=== PATIENT | female | born 1945 | race Caucasian/White ===

== ENCOUNTER → 2017-07-09 14:49 | Outpatient (CLI) | payer MEDICARE, OTHER, SELFPAY ==
[2017-07-09 16:45] LABS: Hematocrit 42.2 % (37-47); Mean Corp Hgb Conc 33.2 g/gl (32-36); Mean Corpuscular Hgb 31.2 pg (27.0-32.0); Mean Platelet Vol. 12.3 fl (6.2-12.0); Platelet Count 163 K/mm3 (150-450); RBC Distribution Width SD 46.5 fl (35.1-43.9); Red Blood Count 4.49 M/mm3 (4.2-5.4); Scan Indicated on CBC? Y/N NO; White Blood Count 5.4 K/mm3 (4.4-11.0)
[2017-07-09 16:53] LABS: Erythrocyte Sedimentation Rate 4 mm/hr (0-30)
[2017-07-09 17:01] LABS: ALB/GLOB Ratio 1.2 RATIO (0.9-2.4); AST(SGOT) 27 U/L (15-37); Alanine Aminotransfer ALT/SGPT 29 U/L (13-56); Albumin, Serum 3.7 g/dL (3.2-5.0); Alkaline Phosphatase 73 U/L (45-117); Anion Gap 8 (5-15); BUN 13 mg/dL (7-18); BUN/Creat Ratio 15.6 RATIO (10-20); CRP < 2.90 mg/L (0.0-3.0); Calcium,Total 8.8 mg/dL (8.5-10.1); Chloride 105 mmol/L (98-107); Creatinine, Serum 0.83 mg/dL (0.55-1.02); EST Glomerular Filtration Rate 72 mL/min (>60); Est Glom Filt Rate - Afr Amer 87 mL/min (>60); Glucose 105 mg/dL (74-106); Potassium 3.5 mmol/L (3.5-5.1); Protein, Total 6.7 g/dL (6.4-8.2); Sodium Level 142 mmol/L (136-145)
== END ==
PROVIDERS: Family Provider Family Medicine; PCP Family Medicine
DX: M05.79 Rheumatoid arthritis with rheumatoid factor of multiple sites without organ or systems involvement (principal); H16.223 Keratoconjunctivitis sicca, not specified as Sjogren's, bilateral; Z79.899 Other long term (current) drug therapy
CPT/HCPCS: 36415; 80053; 85027; 85652; 86140

== ENCOUNTER → 2017-07-30 10:50 | Outpatient (CLI) | payer MEDICARE, OTHER, SELFPAY ==
--- NOTE | 2017-07-30 10:50 | DT_ITS ---
This patient was seen during an EMR downtime July 28, 2017 - August 04, 2017. This patient may have a combination of paper and electronic documentation or all paper documentation. All documentation is viewable within the e-chart portion of [facility] for each patient visit.
[2017-08-03 15:56] LABS: Glucose 77 mg/dL (74-106)
== END ==
PROVIDERS: Family Provider Family Medicine; PCP Family Medicine; Visit Provider Family Medicine
DX: E78.5 Hyperlipidemia, unspecified (principal); Z91.09 Other allergy status, other than to drugs and biological substances
CPT/HCPCS: 36415; 82947; 86003; 86005

== ENCOUNTER → 2017-10-09 14:13 | Outpatient (CLI) | payer MEDICARE, OTHER, SELFPAY | PROVIDERS: Family Provider Family Medicine; PCP Family Medicine; Visit Provider Family Medicine | DX: Z78.0 Asymptomatic menopausal state (principal); Z12.31 Encounter for screening mammogram for malignant neoplasm of breast | CPT/HCPCS: 77063; 77067; 77080 ==

== ENCOUNTER → 2018-01-30 09:54 | Outpatient (CLI) | payer MEDICARE, OTHER, SELFPAY ==
[2018-01-30 09:59] LABS: Bacteria 0 SEEN /hpf (None Seen); Mucous, Urine 0 SEEN /hpf (<or=2+); Red Blood Cells-Urine 0 SEEN /hpf (0-5); White Blood Cells 0 SEEN /hpf (0-5)
[2018-01-30 12:22] LABS: Absolute Lymphocyte Count 1.84 X10^3/ul (0.83-4.51); Absolute Neutrophil Count 1.3 X10^3/uL (2.0-7.7); Basophil# 0.01 X10^3/uL; Basophil% 0.3 % (0-1); Eosinophil# 0.18 X10^3/uL; Eosinophils% 4.9 % (0-5); Hemoglobin 14.3 g/dl (12.0-15.0); Lymphocyte # 1.84 X10^3/ul (4.0); Lymphocyte % 50.4 % (19-41); Mean Corp Hgb Conc 32.5 g/gl (32-36); Mean Corpuscular Hgb 30.6 pg (27.0-32.0); Mean Corpuscular Volume 94.2 fL (81-99); Mean Platelet Vol. 12.3 fl (6.2-12.0); Monocyte# 0.28 X10^3/uL; Monocyte% 7.7 % (0-10); Neutrophil # 1.34 X10^3/uL (2.7-7.7); Neutrophil % 36.7 % (47-70); Platelet Count 149 K/mm3 (150-450); RBC Distribution Width SD 46.8 fl (35.1-43.9); Red Blood Count 4.67 M/mm3 (4.2-5.4); White Blood Count 3.7 K/mm3 (4.4-11.0)
[2018-01-30 12:26] LABS: POSITIVE COUNT NO; POSITIVE DIFFERENTIAL NO; POSITIVE MORPHOLOGY NO
[2018-01-30 12:29] LABS: Color, Urine Yellow (Yellow); Glucose, Dipstick Normal (Normal); Ketone-Dipstick Negative (Negative); Leukocyte Esterase-Dipstick Negative /ul (Negative); Nitrite-Dipstick Negative (Negative); Occult Blood-Urine Negative /ul (Negative); Protein-Dipstick Negative (Negative); Specific Gravity, Urine 1.005 (1.002-1.030); Urine Bilirubin Dipstick Negative (Negative); Urine Clarity Clear (Clear); Urine Urobilinogen Normal (Normal)
[2018-01-30 12:42] LABS: Squamous Epithelial Cells - UA 0-5 SEEN /hpf (5-10)
[2018-01-30 12:43] LABS: ALB/GLOB Ratio 1.2 RATIO (0.9-2.4); AST(SGOT) 30 U/L (15-37); Alanine Aminotransfer ALT/SGPT 29 U/L (13-56); Albumin, Serum 3.7 g/dL (3.2-5.0); Alkaline Phosphatase 51 U/L (45-117); Anion Gap 8 (5-15); BUN 13 mg/dL (7-18); BUN/Creat Ratio 13.2 RATIO (10-20); CRP, High Sensitivity Cardiac 0.16 mg/L; Calcium,Total 9.2 mg/dL (8.5-10.1); Chloride 106 mmol/L (98-107); Creatinine, Serum 0.99 mg/dL (0.55-1.02); EST Glomerular Filtration Rate 59 mL/min (>60); Est Glom Filt Rate - Afr Amer 71 mL/min (>60); Free T3 2.6 pg/mL (2.18-3.98); Globulin 3.2 g/dL (2.2-4.2); Glucose 87 mg/dL (74-106); Protein, Total 6.9 g/dL (6.4-8.2); Sodium Level 143 mmol/L (136-145); T4 Total, Thyroxin 9.5 ug/dL (4.8-13.9); Thyroid Stim Hormone (TSH) 2.84 uIU/mL (0.358-3.74)
== END ==
PROVIDERS: Family Provider Family Medicine; PCP Family Medicine; Visit Provider Family Medicine
DX: E03.9 Hypothyroidism, unspecified (principal); M06.9 Rheumatoid arthritis, unspecified; M05.79 Rheumatoid arthritis with rheumatoid factor of multiple sites without organ or systems involvement; Z79.899 Other long term (current) drug therapy
CPT/HCPCS: 36415; 80053; 81001; 84436; 84443; 84481; 85025; 86141

== ENCOUNTER → 2018-08-03 09:10 | Outpatient (CLI) | payer MEDICARE, OTHER, SELFPAY ==
[2018-08-03 10:15] LABS: Erythrocyte Sedimentation Rate 1 mm/hr (0-30)
[2018-08-03 10:22] LABS: Absolute Lymphocyte Count 2.36 X10^3/ul (0.83-4.51); Absolute Neutrophil Count 2.1 X10^3/uL (2.0-7.7); Basophil# 0.01 X10^3/uL; Basophil% 0.2 % (0-1); Eosinophil# 0.24 X10^3/uL; Eosinophils% 4.8 % (0-5); Hematocrit 45.5 % (37-47); Lymphocyte # 2.36 X10^3/ul (4.0); Lymphocyte % 46.9 % (19-41); Mean Corpuscular Hgb 30.1 pg (27.0-32.0); Mean Corpuscular Volume 91.2 fL (81-99); Mean Platelet Vol. 12.2 fl (6.2-12.0); Monocyte# 0.36 X10^3/uL; Monocyte% 7.2 % (0-10); Neutrophil # 2.06 X10^3/uL (2.7-7.7); Neutrophil % 40.9 % (47-70); Platelet Count 154 K/mm3 (150-450); RBC Distribution Width CV 13.3 % (11.6-14.6); RBC Distribution Width SD 43.3 fl (35.1-43.9); Red Blood Count 4.99 M/mm3 (4.2-5.4)
[2018-08-03 10:32] LABS: POSITIVE COUNT NO; POSITIVE DIFFERENTIAL NO; POSITIVE MORPHOLOGY NO
[2018-08-03 10:41] LABS: ALB/GLOB Ratio 1.1 RATIO (0.9-2.4); AST(SGOT) 30 U/L (15-37); Alanine Aminotransfer ALT/SGPT 30 U/L (13-56); Albumin, Serum 3.8 g/dL (3.2-5.0); Alkaline Phosphatase 57 U/L (45-117); Anion Gap 8 (5-15); BUN 18 mg/dL (7-18); BUN/Creat Ratio 19.7 RATIO (10-20); CRP < 2.90 mg/L (0.0-3.0); Calcium,Total 9.3 mg/dL (8.5-10.1); Chloride 104 mmol/L (98-107); Creatinine, Serum 0.91 mg/dL (0.55-1.02); EST Glomerular Filtration Rate 64 mL/min (>60); Est Glom Filt Rate - Afr Amer 78 mL/min (>60); Globulin 3.5 g/dL (2.2-4.2); Glucose 91 mg/dL (74-106); Potassium 4.1 mmol/L (3.5-5.1); Protein, Total 7.3 g/dL (6.4-8.2); Sodium Level 143 mmol/L (136-145); Thyroid Stim Hormone (TSH) 6.32 uIU/mL (0.358-3.74)
== END ==
PROVIDERS: Family Provider Family Medicine; PCP Family Medicine; Visit Provider Family Medicine
DX: M05.79 Rheumatoid arthritis with rheumatoid factor of multiple sites without organ or systems involvement (principal); H16.223 Keratoconjunctivitis sicca, not specified as Sjogren's, bilateral; M25.531 Pain in right wrist; E03.9 Hypothyroidism, unspecified
CPT/HCPCS: 36415; 80053; 84443; 85025; 85652; 86140

== ENCOUNTER → 2018-09-18 10:47 | Outpatient (CLI) | payer MEDICARE, OTHER, SELFPAY ==
--- NOTE | 2018-09-18 11:00 | RAD_ITS ---
STUDY: X-RAY - RIGHT FOOT CLINICAL: Female, 73 years old. Pain, decreased range of motion TECHNIQUE: 3 view(s) of the foot. COMPARISON: None. FINDINGS: Normal talus, and tarsal bones. Calcaneal spurs. Normal visualized subtalar, talonavicular, calcaneocuboid, tarsal and tarsometatarsal articulations. Normal metatarsi. There is degenerative arthrosis of the metatarsophalangeal joint of the hallux . Normal tibial and fibular sesamoid bones. Normal interphalangeal joint of the great toe. Normal phalanges of the great toe. Normal second through fifth metatarsophalangeal joints. Normal interphalangeal joints and phalanges of the lesser toes. The soft tissue structures are unremarkable. RAD/Foot min 3 Views IMPRESSION: Significant first MTP joint arthrosis with spur formation Calcaneal spurs No demonstrated fracture Electronically Signed: Tigre Hatfield MD at 11:25 EDT , Service support ,
== END ==
PROVIDERS: Family Provider Family Medicine; PCP Family Medicine; Referring Provider Family Medicine; Visit Provider Family Medicine
DX: M79.671 Pain in right foot (principal)
CPT/HCPCS: 73630

== ENCOUNTER → 2018-10-15 14:18 | Outpatient (CLI) | payer MEDICARE, OTHER, SELFPAY ==
[2018-10-15 16:14] LABS: Thyroid Stim Hormone (TSH) 0.99 uIU/mL (0.358-3.74)
== END ==
PROVIDERS: Family Provider Family Medicine; PCP Family Medicine; Referring Provider Family Medicine; Visit Provider Family Medicine
DX: E03.9 Hypothyroidism, unspecified (principal)
CPT/HCPCS: 36415; 84443

== ENCOUNTER → 2019-02-01 09:02 | Outpatient (CLI) | payer MEDICARE, OTHER, SELFPAY ==
[2019-02-01 10:09] LABS: Absolute Neutrophil Count 1.9 X10^3/uL (2.0-7.7); Basophil# 0.04 X10^3/uL; Basophil% 0.8 % (0-1); Eosinophil# 0.48 X10^3/uL; Eosinophils% 9.4 % (0-5); Hematocrit 45.2 % (37-47); Hemoglobin 14.6 g/dL (12.0-15.0); Lymphocyte % 45.2 % (19-41); Mean Corp Hgb Conc 32.3 g/dL (32-36); Mean Corpuscular Hgb 30.3 pg (27.0-32.0); Mean Corpuscular Volume 93.8 fL (81-99); Mean Platelet Vol. 12.1 fl (6.2-12.0); Monocyte# 0.37 X10^3/uL; Monocyte% 7.3 % (0-10); NRBC Flagged by Analyzer 0 % (0-5); Neutrophil # 1.89 X10^3/uL (2.7-7.7); Neutrophil % 37.1 % (47-70); Platelet Count 161 K/mm3 (150-450); RBC Distribution Width CV 14.2 % (11.6-14.6); RBC Distribution Width SD 48.4 fl (35.1-43.9); Red Blood Count 4.82 M/mm3 (4.2-5.4); White Blood Count 5.1 K/mm3 (4.4-11.0)
[2019-02-01 10:18] LABS: Erythrocyte Sedimentation Rate 2 mm/hr (0-30)
[2019-02-01 10:59] LABS: ALB/GLOB Ratio 1.1 RATIO (0.9-2.4); AST(SGOT) 30 U/L (15-37); Alanine Aminotransfer ALT/SGPT 29 U/L (13-56); Albumin, Serum 3.7 g/dL (3.2-5.0); Alkaline Phosphatase 53 U/L (45-117); Anion Gap 5 (5-15); BUN 18 mg/dL (7-18); BUN/Creat Ratio 21.4 RATIO (10-20); CRP < 2.90 mg/L (0.0-3.0); Calcium,Total 9.1 mg/dL (8.5-10.1); Chloride 106 mmol/L (98-107); Cholesterol 196 mg/dL (200); Creatinine, Serum 0.84 mg/dL (0.55-1.02); EST Glomerular Filtration Rate 71 mL/min (>60); Est Glom Filt Rate - Afr Amer 85 mL/min (>60); Free T3 2.6 pg/mL (2.18-3.98); Globulin 3.3 g/dL (2.2-4.2); Glucose 87 mg/dL (74-106); High Density Lipoprotein 94 mg/dL; Potassium 3.9 mmol/L (3.5-5.1); Sodium Level 141 mmol/L (136-145); T4 Total, Thyroxin 9.3 ug/dL (4.8-13.9); Thyroid Stim Hormone (TSH) 1.29 uIU/mL (0.358-3.74); Triglycerides 36 mg/dL; Very Low Density Lipoprotein 7 mg/dL (5-40)
== END ==
PROVIDERS: Family Provider Family Medicine; PCP Family Medicine; Visit Provider Family Medicine
DX: E03.9 Hypothyroidism, unspecified (principal); E78.5 Hyperlipidemia, unspecified; M05.79 Rheumatoid arthritis with rheumatoid factor of multiple sites without organ or systems involvement; H16.223 Keratoconjunctivitis sicca, not specified as Sjogren's, bilateral; M25.531 Pain in right wrist; M25.532 Pain in left wrist
CPT/HCPCS: 36415; 80053; 80061; 84436; 84443; 84481; 85025; 85652; 86140

== ENCOUNTER → 2019-08-04 | Outpatient (CLI) | payer MEDICARE, OTHER, SELFPAY ==
[2019-08-04 10:40] LABS: Absolute Lymphocyte Count 2.03 X10^3/uL (0.83-4.51); Absolute Neutrophil Count 1.9 X10^3/uL (2.0-7.7); Basophil# 0.03 X10^3/uL; Basophil% 0.6 % (0-1); Eosinophil# 0.27 X10^3/uL; Eosinophils% 5.8 % (0-5); Hematocrit 44.3 % (37-47); Hemoglobin 14.2 g/dL (12.0-15.0); Lymphocyte # 2.03 X10^3/ul (4.0); Lymphocyte % 43.8 % (19-41); Mean Corp Hgb Conc 32.1 g/dL (32-36); Mean Corpuscular Hgb 30.3 pg (27.0-32.0); Mean Corpuscular Volume 94.7 fL (81-99); Mean Platelet Vol. 12.1 fl (6.2-12.0); Monocyte% 8.6 % (0-10); NRBC Flagged by Analyzer 0 % (0-5); Platelet Count 174 K/mm3 (150-450); RBC Distribution Width CV 13.7 % (11.6-14.6); RBC Distribution Width SD 46.8 fl (35.1-43.9); Red Blood Count 4.68 M/mm3 (4.2-5.4); White Blood Count 4.6 K/mm3 (4.4-11.0)
[2019-08-04 10:49] LABS: T3 Total - Triiodothyronine 0.94 ng/mL (0.6-1.81)
[2019-08-04 10:58] LABS: Erythrocyte Sedimentation Rate 5 mm/hr (0-30)
[2019-08-04 11:03] LABS: ALB/GLOB Ratio 1.1 RATIO (0.9-2.4); AST(SGOT) 29 U/L (15-37); Alanine Aminotransfer ALT/SGPT 32 U/L (13-56); Albumin, Serum 3.7 g/dL (3.2-5.0); Alkaline Phosphatase 58 U/L (45-117); Anion Gap 7 (5-15); BUN 19 mg/dL (7-18); BUN/Creat Ratio 22.8 RATIO (10-20); CRP < 2.90 mg/L (0.0-3.0); CRP, High Sensitivity Cardiac < 0.16 mg/L; Calcium,Total 9.6 mg/dL (8.5-10.1); Chloride 103 mmol/L (98-107); Cholesterol 207 mg/dL (200); Creatinine, Serum 0.83 mg/dL (0.55-1.02); EST Glomerular Filtration Rate 71 mL/min (>60); Est Glom Filt Rate - Afr Amer 86 mL/min (>60); Globulin 3.4 g/dL (2.2-4.2); Glucose 91 mg/dL (74-106); High Density Lipoprotein 101 mg/dL; Potassium 3.9 mmol/L (3.5-5.1); Protein, Total 7.1 g/dL (6.4-8.2); Sodium Level 139 mmol/L (136-145); T4 Total, Thyroxin 8.2 ug/dL (4.8-13.9); Thyroid Stim Hormone (TSH) 1.24 uIU/mL (0.358-3.74); Triglycerides 36 mg/dL; Very Low Density Lipoprotein 7 mg/dL (5-40)
== END | disposition home or self-care (01) ==
LOC: MFPLAB 08:27
PROVIDERS: PCP Family Medicine; Visit Provider Family Medicine
DX: E03.9 Hypothyroidism, unspecified (principal); E78.5 Hyperlipidemia, unspecified; M06.09 Rheumatoid arthritis without rheumatoid factor, multiple sites
CPT/HCPCS: 36415; 80053; 80061; 84436; 84443; 84480; 85025; 85652; 86140; 86141

== ENCOUNTER → 2019-12-06 | Outpatient (CLI) | payer MEDICARE, OTHER, SELFPAY ==
[2019-12-06 13:21] LABS: Erythrocyte Sedimentation Rate 2 mm/hr (0-30)
[2019-12-06 13:24] LABS: Hematocrit 45.1 % (37-47); Hemoglobin 14.3 g/dL (12.0-15.0); Mean Corp Hgb Conc 31.7 g/dL (32-36); Mean Corpuscular Hgb 30.2 pg (27.0-32.0); Mean Corpuscular Volume 95.1 fL (81-99); Mean Platelet Vol. 12.7 fl (6.2-12.0); Platelet Count 161 K/mm3 (150-450); RBC Distribution Width CV 13.1 % (11.6-14.6); RBC Distribution Width SD 46.1 fl (35.1-43.9); Red Blood Count 4.74 M/mm3 (4.2-5.4); White Blood Count 4.9 K/mm3 (4.4-11.0)
[2019-12-06 13:32] LABS: AST(SGOT) 31 U/L (15-37); Alanine Aminotransfer ALT/SGPT 33 U/L (13-56); Albumin, Serum 3.5 g/dL (3.2-5.0); Alkaline Phosphatase 72 U/L (45-117); Anion Gap 4 (5-15); BUN 19 mg/dL (7-18); BUN/Creat Ratio 24.2 RATIO (10-20); CRP < 2.90 mg/L (0.0-3.0); Calcium,Total 9.2 mg/dL (8.5-10.1); Chloride 104 mmol/L (98-107); Creatinine, Serum 0.78 mg/dL (0.55-1.02); EST Glomerular Filtration Rate 76 mL/min (>60); Est Glom Filt Rate - Afr Amer 93 mL/min (>60); Globulin 3.5 g/dL (2.2-4.2); Glucose 78 mg/dL (74-106); Potassium 3.7 mmol/L (3.5-5.1); Sodium Level 140 mmol/L (136-145)
== END | disposition home or self-care (01) ==
LOC: MTLAB 10:02
PROVIDERS: PCP Family Medicine
DX: M06.9 Rheumatoid arthritis, unspecified (principal)
CPT/HCPCS: 36415; 80053; 85027; 85652; 86140

== ENCOUNTER → 2020-02-02 08:53 | Outpatient (CLI) | payer MEDICARE, OTHER, SELFPAY ==
[2020-02-02 10:07] LABS: Absolute Lymphocyte Count 2.35 X10^3/uL (0.83-4.51); Absolute Neutrophil Count 1.9 X10^3/uL (2.0-7.7); Basophil# 0.03 X10^3/uL; Basophil% 0.6 % (0-1); Eosinophil# 0.28 X10^3/uL; Eosinophils% 5.7 % (0-5); Hematocrit 45.2 % (37-47); Hemoglobin 14.4 g/dL (12.0-15.0); Lymphocyte # 2.35 X10^3/ul (4.0); Mean Corp Hgb Conc 31.9 g/dL (32-36); Mean Corpuscular Hgb 29.4 pg (27.0-32.0); Mean Corpuscular Volume 92.2 fL (81-99); Mean Platelet Vol. 12.2 fl (6.2-12.0); Monocyte# 0.35 X10^3/uL; Monocyte% 7.1 % (0-10); NRBC Flagged by Analyzer 0 % (0-5); Neutrophil # 1.88 X10^3/uL (2.7-7.7); Neutrophil % 38.4 % (47-70); Platelet Count 164 K/mm3 (150-450); RBC Distribution Width CV 13.2 % (11.6-14.6); RBC Distribution Width SD 44.7 fl (35.1-43.9); White Blood Count 4.9 K/mm3 (4.4-11.0)
[2020-02-02 10:16] LABS: ALB/GLOB Ratio 1.1 RATIO (0.9-2.4); AST(SGOT) 25 U/L (15-37); Alanine Aminotransfer ALT/SGPT 29 U/L (13-56); Albumin, Serum 3.6 g/dL (3.2-5.0); Alkaline Phosphatase 60 U/L (45-117); Anion Gap 2 (5-15); BUN 14 mg/dL (7-18); BUN/Creat Ratio 17.3 RATIO (10-20); CRP < 2.90 mg/L (0.0-3.0); Calcium,Total 9.2 mg/dL (8.5-10.1); Chloride 106 mmol/L (98-107); Creatinine, Serum 0.81 mg/dL (0.55-1.02); EST Glomerular Filtration Rate 73 mL/min (>60); Est Glom Filt Rate - Afr Amer 89 mL/min (>60); Globulin 3.3 g/dL (2.2-4.2); Glucose 92 mg/dL (74-106); Potassium 3.9 mmol/L (3.5-5.1); Protein, Total 6.9 g/dL (6.4-8.2); Sodium Level 139 mmol/L (136-145)
[2020-02-02 10:30] LABS: Cholesterol 184 mg/dL (200); Free T3 2.2 pg/mL (2.18-3.98); High Density Lipoprotein 91 mg/dL; T4 Total, Thyroxin 10.3 ug/dL (4.8-13.9); Triglycerides 59 mg/dL; Very Low Density Lipoprotein 12 mg/dL (5-40)
[2020-02-02 10:58] LABS: Erythrocyte Sedimentation Rate 5 mm/hr (0-30)
== END ==
PROVIDERS: PCP Family Medicine; Referring Provider Family Medicine; Visit Provider Family Medicine
DX: E03.9 Hypothyroidism, unspecified (principal); E78.5 Hyperlipidemia, unspecified; M06.9 Rheumatoid arthritis, unspecified
CPT/HCPCS: 36415; 80053; 80061; 84436; 84443; 84481; 85025; 85652; 86140

== ENCOUNTER → 2020-05-12 11:20 | Outpatient (CLI) | payer MEDICARE, OTHER, SELFPAY ==
[2020-05-12 12:30] LABS: Hematocrit 46.2 % (37-47); Hemoglobin 14.7 g/dL (12.0-15.0); Mean Corp Hgb Conc 31.8 g/dL (32-36); Mean Corpuscular Hgb 29.7 pg (27.0-32.0); Mean Corpuscular Volume 93.3 fL (81-99); Mean Platelet Vol. 11.7 fl (6.2-12.0); Platelet Count 180 K/mm3 (150-450); RBC Distribution Width CV 13.1 % (11.6-14.6); RBC Distribution Width SD 44.6 fl (35.1-43.9); Red Blood Count 4.95 M/mm3 (4.2-5.4); White Blood Count 7.3 K/mm3 (4.4-11.0)
[2020-05-12 12:36] LABS: Erythrocyte Sedimentation Rate 6 mm/hr (0-30)
[2020-05-12 12:58] LABS: AST(SGOT) 28 U/L (15-37); Alanine Aminotransfer ALT/SGPT 29 U/L (13-56); Albumin, Serum 3.6 g/dL (3.2-5.0); Alkaline Phosphatase 70 U/L (45-117); Anion Gap 4 (5-15); BUN 19 mg/dL (7-18); BUN/Creat Ratio 22.7 RATIO (10-20); CRP < 2.90 mg/L (0.0-3.0); Calcium,Total 8.9 mg/dL (8.5-10.1); Chloride 104 mmol/L (98-107); Creatinine, Serum 0.84 mg/dL (0.55-1.02); EST Glomerular Filtration Rate 71 mL/min (>60); Est Glom Filt Rate - Afr Amer 86 mL/min (>60); Globulin 3.6 g/dL (2.2-4.2); Glucose 78 mg/dL (74-106); Potassium 3.7 mmol/L (3.5-5.1); Protein, Total 7.2 g/dL (6.4-8.2); Sodium Level 138 mmol/L (136-145)
== END ==
PROVIDERS: PCP Family Medicine; Referring Provider Family Medicine
DX: M06.9 Rheumatoid arthritis, unspecified (principal)
CPT/HCPCS: 36415; 80053; 85027; 85652; 86140

== ENCOUNTER → 2020-08-02 08:54 | Outpatient (CLI) | payer MEDICARE, OTHER, SELFPAY ==
[2020-08-02 10:03] LABS: Erythrocyte Sedimentation Rate 2 mm/hr (0-30)
[2020-08-02 10:06] LABS: Hematocrit 44.5 % (37-47); Hemoglobin 14.8 g/dL (12.0-15.0); Mean Corp Hgb Conc 33.3 g/dL (32-36); Mean Corpuscular Hgb 30.6 pg (27.0-32.0); Mean Corpuscular Volume 91.9 fL (81-99); Mean Platelet Vol. 12.1 fl (6.2-12.0); Platelet Count 172 K/mm3 (150-450); RBC Distribution Width CV 13.1 % (11.6-14.6); RBC Distribution Width SD 44.6 fl (35.1-43.9); Red Blood Count 4.84 M/mm3 (4.2-5.4); White Blood Count 4.5 K/mm3 (4.4-11.0)
[2020-08-02 10:49] LABS: ALB/GLOB Ratio 1.1 RATIO (0.9-2.4); AST(SGOT) 32 U/L (15-37); Alanine Aminotransfer ALT/SGPT 29 U/L (13-56); Albumin, Serum 3.6 g/dL (3.2-5.0); Alkaline Phosphatase 58 U/L (45-117); Anion Gap 7 (5-15); BUN 14 mg/dL (7-18); BUN/Creat Ratio 17.1 RATIO (10-20); CRP < 2.90 mg/L (0.0-3.0); Calcium,Total 9.5 mg/dL (8.5-10.1); Chloride 105 mmol/L (98-107); Cholesterol 165 mg/dL (200); Creatinine, Serum 0.82 mg/dL (0.55-1.02); EST Glomerular Filtration Rate 73 mL/min (>60); Est Glom Filt Rate - Afr Amer 88 mL/min (>60); Free T3 2.7 pg/mL (2.18-3.98); Globulin 3.4 g/dL (2.2-4.2); Glucose 88 mg/dL (74-106); High Density Lipoprotein 77 mg/dL; Potassium 3.9 mmol/L (3.5-5.1); Sodium Level 141 mmol/L (136-145); T4 Free Direct 1.19 ng/dL (0.76-1.46); Thyroid Stim Hormone (TSH) 0.17 uIU/mL (0.358-3.74); Triglycerides 60 mg/dL; Very Low Density Lipoprotein 12 mg/dL (5-40)
== END ==
PROVIDERS: PCP Family Medicine; Referring Provider Family Medicine; Visit Provider Family Medicine
DX: E03.9 Hypothyroidism, unspecified (principal); E78.5 Hyperlipidemia, unspecified; M06.9 Rheumatoid arthritis, unspecified
CPT/HCPCS: 36415; 80053; 80061; 84439; 84443; 84481; 85027; 85652; 86140

== ENCOUNTER 2020-10-07 08:10 | Emergency (ER) | payer MEDICARE, OTHER, SELFPAY ==
[2020-10-07 08:12] VITALS: BP 145/81; PULSE 86; RESP 14; TEMP 35.3; O2SAT 96; BMI 28.3
--- NOTE | 2020-10-07 08:39 | RAD_ITS ---
STUDY: X-RAY - RIGHT SHOULDER REASON FOR EXAM: Female, 75 years old. FOOSH TECHNIQUE: 2 view(s) of the shoulder. COMPARISON: None. FINDINGS: Normal glenohumeral articulation. Normal acromioclavicular joint. Normal acromion. Fracture the humeral neck which may be acute or chronic. The soft tissue structures are unremarkable. Normal visualized pulmonary apex. RAD/Shoulder min 2 Views IMPRESSION: Nondisplaced humeral neck fracture which may be acute or chronic. Electronically Signed: Festus De Santiago MD at 10:09 EDT Tel , Service support ,
--- NOTE | 2020-10-07 08:44 | EX.ED.UPPERE ---
HPI History of Present Illness Chief Complaint: Upper Extremity Injury Informant: patient Narrative Narrative: Patient is a 75-year-old female who presents to the emergency department for fall causing right shoulder and elbow pain. She states that she was out walking with her son whenever she tripped over a bump in the asphalt. She put her right arm out to catch herself and this caused her injury. She denies hitting her head or losing consciousness. No neck or back pain. No chest pain or shortness of breath. No abdominal pain or nausea/vomiting. Her symptoms are exacerbated by moving her right arm. No weakness or loss of sensation going down the hand. She is not on any blood thinning medications. She has not taken anything for her symptoms. She does have right wrist pain but states that this is chronic for her. It is no worse than normal. Patient is left-handed at baseline. [facility] Medical History (Updated 10/07/20 @ 10:[address] Chaparro Blair DO) High cholesterol Rheumatoid arthritis Home Medications atorvastatin 10 mg PO DAILY 10/07/20 [History Last Taken Unknown] etanercept [Enbrel] 50 mg SUBCUT 10/07/20 [History Last Taken Unknown] hydrocodone-acetaminophen 1 tab PO Q8H PRN 4 Days #10 tab 10/07/20 [Rx Last Taken Unknown] levothyroxine [Synthroid] 75 mcg PO DAILY 10/07/20 [History Last Taken Unknown] Allergy/AdvReac Type Severity Reaction Status Date / Time latex Allergy Itching Verified 10/07/20 08:11 Social History Smoking Status: Never smoker ROS ROS ED Constitutional Constitutional ED: Denies chills or fever(s) Eyes Eyes: Denies change in vision ENT ENT ED: Denies epistaxis Cardiovascular Cardiovascular: Denies chest pain Respiratory/Chest Respiratory/Chest: Denies cough or dyspnea Gastrointestinal Gastrointestinal: Denies abdominal pain, nausea or vomiting Musculoskeletal Musculoskeletal: Reports other Details: Right shoulder and elbow pain ; Denies back pain or neck pain Integumentary Denies abscess or rash Neurologic Neurologic: Denies dizziness, headache(s) or weakness EXAM Physical Exam Const Vital Signs: 10/07/20 08:12 Temperature 95.6 F L Temperature Source Temporal Pulse Rate 86 Respiratory Rate 14 Blood Pressure 145/81 H Blood Pressure Mean 102 Pulse Ox 96 Oxygen Delivery Method Room Air Positive well nourished and well developed General Appearance ED: well developed and NAD HEENT Reports normocephalic and head/scalp atraumatic Eyes PERRL and EOMs intact bilaterally Neck supple General: Negative for tenderness Resp normal respiratory effort and clear to auscultation bilaterally Auscultation: Negative for rales, rhonchi or wheezes Cardio regular rate, regular rhythm and no murmurs GI GI Narrative: Abdomen is soft nondistended, nontender Back/Spine Cervical Spine: Negative for cervical spine tenderness Thoracic Spine / Upper Back: Negative for thoracic spinal tenderness Lumbar Spine / Lower Back: Negative for lumbar spinal tenderness Extremity normal to inspection Extremity Narrative: No significant tenderness with palpation of the right shoulder or elbow. 2+ radial pulse. 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 Active range of motion is limited due to pain at the shoulder. No skin tenting over clavicle. General Extremety ED: Negative for edema or tenderness General Extremity: Negative for edema Neuro no sensory deficits noted Sensorium / Orientation: alert Psych mental status grossly normal Skin no rashes or lesions noted MDM MDM MDM Narrative Medical decision making narrative: Patient presents to the emergency department for mechanical fall causing right shoulder and elbow pain. Patient given a dose of Tylenol for symptomatic treatment. She is not anything stronger at this point. Will check x-ray of the elbow and shoulder. X-ray of the shoulder did show a nondisplaced fracture of the humerus neck. The elbow did not reveal any acute traumatic findings. Patient placed in a sling. They did request some stronger medication other than Tylenol. I did write a prescription for [place]. She understands that this can make her sleepy and at risk for fall. She is given referral for orthopedic surgery. Return precautions reviewed. She otherwise has remained neurovascular intact. Discharge Plan Triage Chief Complaint: Upper Extremity Injury ED Provider: Chaparro Blair Dx/Rx/DC Orders Clinical Impression: Fracture of proximal humerus Instructions: Understanding a Humerus Fracture Prescriptions: New hydrocodone-acetaminophen 5-325 mg tablet 1 tab PO Q8H PRN (Reason: pain) 4 Days Qty: 10 RF: 0 No Action atorvastatin 10 mg tablet 10 mg PO DAILY RF: 0 levothyroxine [Synthroid] 75 mcg tablet 75 mcg PO DAILY RF: 0 Enbrel 50 mg/mL (1 mL) syringe 50 mg SUBCUT RF: 0 Primary Care Provider: Elmo Cooney: Yohannes Cadet DO [STAFF PHYSICIAN] - 2 Days Elmo Cooney MD [Primary Care Provider] - Disposition Disposition: Home, Self Care Discharge Date/Time: 10/07/20 11:30
[2020-10-07] MEDS: Acetaminophen 325 MG Tablet 650 MG PO (08:57)
--- NOTE | 2020-10-07 09:20 | RAD_ITS ---
STUDY: X-RAY - RIGHT ELBOW REASON FOR EXAM: Female, 75 years old. FOOSH TECHNIQUE: 4 view(s) of the elbow. COMPARISON: None. FINDINGS: Normal visualized humerus, radius and ulna. Normal radiocapitellar and ulnotrochlear articulations. The soft tissue structures are unremarkable. There is no demonstrated fracture. RAD/Elbow 2 Views IMPRESSION: Normal x-ray examination of the right elbow. Electronically Signed: Tigre Cruz MD at 11:10 EDT , Service support ,
== END 2020-10-07 11:30 | disposition home or self-care (01) ==
PROVIDERS: Emergency Provider Emergency Medicine; PCP Family Medicine
DX: S42.294A Other nondisplaced fracture of upper end of right humerus, initial encounter for closed fracture (principal); M06.9 Rheumatoid arthritis, unspecified; E78.00 Pure hypercholesterolemia, unspecified; Z79.899 Other long term (current) drug therapy; W01.0XXA Fall on same level from slipping, tripping and stumbling without subsequent striking against object, initial encounter; Y93.01 Activity, walking, marching and hiking; Y92.89 Other specified places as the place of occurrence of the external cause; Y99.8 Other external cause status
CPT/HCPCS: 73030; 73070; 99283

== ENCOUNTER → 2021-02-07 08:53 | Outpatient (CLI) | payer MEDICARE, OTHER, SELFPAY ==
[2021-02-07 10:18] LABS: Erythrocyte Sedimentation Rate 3 mm/hr (0-30)
[2021-02-07 10:19] LABS: Hematocrit 46.3 % (37-47); Hemoglobin 14.7 g/dL (12.0-15.0); Mean Corp Hgb Conc 31.7 g/dL (32-36); Mean Corpuscular Hgb 29.6 pg (27.0-32.0); Mean Corpuscular Volume 93.2 fL (81-99); Mean Platelet Vol. 12.5 fl (6.2-12.0); Platelet Count 158 K/mm3 (150-450); RBC Distribution Width CV 13.2 % (11.6-14.6); Red Blood Count 4.97 M/mm3 (4.2-5.4)
[2021-02-07 10:44] LABS: ALB/GLOB Ratio 1.1 RATIO (0.9-2.4); AST(SGOT) 27 U/L (15-37); Alanine Aminotransfer ALT/SGPT 30 U/L (13-56); Albumin, Serum 3.6 g/dL (3.2-5.0); Alkaline Phosphatase 67 U/L (45-117); Anion Gap 4 (5-15); BUN 23 mg/dL (7-18); BUN/Creat Ratio 28.9 RATIO (10-20); CRP < 2.90 mg/L (0.0-3.0); Calcium,Total 9.3 mg/dL (8.5-10.1); Chloride 107 mmol/L (98-107); Cholesterol 189 mg/dL (200); EST Glomerular Filtration Rate 75 mL/min (>60); Est Glom Filt Rate - Afr Amer 91 mL/min (>60); Free T3 2.4 pg/mL (2.18-3.98); Globulin 3.3 g/dL (2.2-4.2); Glucose 99 mg/dL (74-106); High Density Lipoprotein 75 mg/dL; Protein, Total 6.9 g/dL (6.4-8.2); Sodium Level 140 mmol/L (136-145); T4 Free Direct 0.97 ng/dL (0.76-1.46); Thyroid Stim Hormone (TSH) 2.67 uIU/mL (0.358-3.74); Triglycerides 81 mg/dL; Very Low Density Lipoprotein 16 mg/dL (5-40)
[2021-02-07 10:47] LABS: Vitamin D,25 Hydroxy 64.8 ng/mL
== END ==
PROVIDERS: PCP Family Medicine; Referring Provider Family Medicine; Visit Provider Family Medicine
DX: E03.9 Hypothyroidism, unspecified (principal); E55.9 Vitamin D deficiency, unspecified; E78.5 Hyperlipidemia, unspecified; M06.9 Rheumatoid arthritis, unspecified
CPT/HCPCS: 36415; 80053; 80061; 82306; 84439; 84443; 84481; 85027; 85652; 86140

== ENCOUNTER → 2021-08-08 | Outpatient (CLI) | payer MEDICARE, OTHER, SELFPAY ==
[2021-08-08 10:05] LABS: Erythrocyte Sedimentation Rate 6 mm/hr (0-30)
[2021-08-08 10:08] LABS: Absolute Neutrophil Count 2.1 X10^3/uL (2.0-7.7); Basophil# 0.03 X10^3/uL; Basophil% 0.6 % (0-1); Eosinophil# 0.28 X10^3/uL; Eosinophils% 5.5 % (0-5); Hematocrit 45.7 % (37-47); Hemoglobin 15.2 g/dL (12.0-15.0); Lymphocyte % 43.2 % (19-41); Mean Corp Hgb Conc 33.3 g/dL (32-36); Mean Corpuscular Hgb 30.8 pg (27.0-32.0); Mean Corpuscular Volume 92.7 fL (81-99); Monocyte# 0.44 X10^3/uL; Monocyte% 8.6 % (0-10); NRBC Flagged by Analyzer 0 % (0-5); Neutrophil # 2.14 X10^3/uL (2.7-7.7); Neutrophil % 42.1 % (47-70); Platelet Count 164 K/mm3 (150-450); RBC Distribution Width CV 13.1 % (11.6-14.6); RBC Distribution Width SD 44.6 fl (35.1-43.9); Red Blood Count 4.93 M/mm3 (4.2-5.4); White Blood Count 5.1 K/mm3 (4.4-11.0)
[2021-08-08 10:50] LABS: ALB/GLOB Ratio 1.1 RATIO (0.9-2.4); AST(SGOT) 35 U/L (15-37); Alanine Aminotransfer ALT/SGPT 34 U/L (13-56); Albumin, Serum 3.9 g/dL (3.2-5.0); Alkaline Phosphatase 60 U/L (45-117); Anion Gap 6 (5-15); BUN 22 mg/dL (7-18); BUN/Creat Ratio 24.9 RATIO (10-20); CRP < 2.90 mg/L (0.0-3.0); Calcium,Total 9.7 mg/dL (8.5-10.1); Chloride 104 mmol/L (98-107); Cholesterol 185 mg/dL (200); Creatinine, Serum 0.88 mg/dL (0.55-1.02); EST Glomerular Filtration Rate 66 mL/min (>60); Est Glom Filt Rate - Afr Amer 80 mL/min (>60); Free T3 2.7 pg/mL (2.18-3.98); Globulin 3.5 g/dL (2.2-4.2); Glucose 93 mg/dL (74-106); High Density Lipoprotein 75 mg/dL; Protein, Total 7.4 g/dL (6.4-8.2); Sodium Level 140 mmol/L (136-145); T4 Free Direct 0.94 ng/dL (0.76-1.46); Thyroid Stim Hormone (TSH) 2.73 uIU/mL (0.358-3.74); Triglycerides 55 mg/dL; Very Low Density Lipoprotein 11 mg/dL (5-40)
== END | disposition home or self-care (01) ==
LOC: MFPLAB 08:50
PROVIDERS: PCP Family Medicine; Referring Provider Family Medicine; Visit Provider Family Medicine
DX: M06.9 Rheumatoid arthritis, unspecified (principal); E78.5 Hyperlipidemia, unspecified; E03.9 Hypothyroidism, unspecified
CPT/HCPCS: 36415; 80053; 80061; 84439; 84443; 84481; 85025; 85652; 86140

== ENCOUNTER → 2022-03-08 | Outpatient (CLI) | payer MEDICARE, OTHER, SELFPAY ==
[2022-03-08 12:28] LABS: Erythrocyte Sedimentation Rate 4 mm/hr (0-30)
[2022-03-08 12:31] LABS: Absolute Lymphocyte Count 2.48 X10^3/uL (0.83-4.51); Absolute Neutrophil Count 1.8 X10^3/uL (2.0-7.7); Basophil# 0.03 X10^3/uL; Basophil% 0.6 % (0-1); Eosinophil# 0.18 X10^3/uL; Eosinophils% 3.6 % (0-5); Hematocrit 46.7 % (37-47); Hemoglobin 15.1 g/dL (12.0-15.0); Lymphocyte # 2.48 X10^3/ul (0.83-4.51); Lymphocyte % 49.2 % (19-41); Mean Corp Hgb Conc 32.3 g/dL (32-36); Mean Corpuscular Volume 92.7 fL (81-99); Mean Platelet Vol. 12.3 fl (6.2-12.0); Monocyte# 0.51 X10^3/uL; Monocyte% 10.1 % (0-10); NRBC Flagged by Analyzer 0.4 % (0-5); Neutrophil # 1.83 X10^3/uL (2.7-7.7); Neutrophil % 36.3 % (47-70); Platelet Count 157 K/mm3 (150-450); RBC Distribution Width CV 12.9 % (11.6-14.6); RBC Distribution Width SD 43.8 fl (35.1-43.9); Red Blood Count 5.04 M/mm3 (4.2-5.4)
[2022-03-08 13:06] LABS: Vitamin D,25 Hydroxy 60.4 ng/mL
[2022-03-08 13:21] LABS: ALB/GLOB Ratio 1.5 RATIO (0.9-2.4); AST(SGOT) 30 U/L (15-37); Alanine Aminotransfer ALT/SGPT 30 U/L (13-56); Albumin, Serum 4.2 g/dL (3.2-5.0); Alkaline Phosphatase 58 U/L (45-117); Anion Gap 8 (5-15); BUN 15 mg/dL (7-18); BUN/Creat Ratio 15.6 RATIO (10-20); CRP < 2.90 mg/L (0.0-3.0); Calcium,Total 9.4 mg/dL (8.5-10.1); Chloride 104 mmol/L (98-107); Cholesterol 172 mg/dL (200); Creatinine, Serum 0.96 mg/dL (0.55-1.02); EST Glomerular Filtration Rate 60 mL/min (>60); Est Glom Filt Rate - Afr Amer 73 mL/min (>60); Free T3 3.1 pg/mL (2.18-3.98); Globulin 2.8 g/dL (2.2-4.2); Glucose 87 mg/dL (74-106); High Density Lipoprotein 71 mg/dL; Potassium 4.3 mmol/L (3.5-5.1); Sodium Level 140 mmol/L (136-145); T4 Free Direct 1.56 ng/dL (0.76-1.46); Thyroid Stim Hormone (TSH) 0.23 uIU/mL (0.358-3.74); Triglycerides 73 mg/dL; Very Low Density Lipoprotein 15 mg/dL (5-40)
== END | disposition home or self-care (01) ==
PROVIDERS: PCP Family Medicine; Referring Provider Family Medicine
DX: Z00.00 Encounter for general adult medical examination without abnormal findings (principal); M05.79 Rheumatoid arthritis with rheumatoid factor of multiple sites without organ or systems involvement; M35.00 Sjogren syndrome, unspecified; Z79.899 Other long term (current) drug therapy; E03.9 Hypothyroidism, unspecified; E55.9 Vitamin D deficiency, unspecified
CPT/HCPCS: 36415; 80053; 80061; 82306; 84439; 84443; 84481; 85025; 85652; 86140

== ENCOUNTER 2022-06-19 08:48 | Day surgery (SDC) | payer MEDICARE, OTHER, SELFPAY ==
[2022-06-19] VITALS (7 sets, daily range): BP systolic 99–125; BP diastolic 57–68; PULSE 73–82; RESP 16; TEMP 36.2–36.4; O2SAT 93–98; BMI 26.4
[2022-06-19] MEDS: Lactated Ringers 1,000 ML 15 ML IV (09:29)
--- NOTE | 2022-06-19 09:29 | HP.PCM_ITS ---
HPI - General General Date of Admission: 06/19/22 HPI Narrative SARI JORDAN, is a 76 F who presents for screening colonoscopy. Patient's last colonoscopy was about 10 years ago or more patient is unsure?normal per patient. Patient denies any family history of colon cancer. Patient's bowel movements every other day denies any blood. Patient denies any chronic abdominal pain/nausea/vomiting/reflux. [facility] Medical History (Updated 06/17/22 @ 09:34 by La Morrison) Alcohol use Arthritis Excessive bleeding High cholesterol History of GI bleed History of stress test Hypothyroid Non-smoker Post-menopausal Rheumatoid arthritis Seizures Thyroid disease Wears glasses Home Medications atorvastatin 10 mg tablet 10 mg PO DAILY 10/07/20 [History Last Taken Unknown] etanercept 50 mg/mL (1 mL) subcutaneous syringe (Enbrel) 50 mg subcut QWEEK 10/07/20 [History Last Taken Unknown] levothyroxine 75 mcg tablet (Synthroid) 75 mcg PO DAILY 10/07/20 [History Last Taken Unknown] calcium carbonate 600 mg calcium (1,500 mg) tablet (Calcium) 600 mg PO DAILY 05/27/22 [History Last Taken Unknown] cholecalciferol (vitamin D3) 50 mcg (2,000 unit) capsule 50 mcg PO DAILY 05/27/22 [History Last Taken Unknown] coenzyme Q10 75 mg capsule (Ultra CoQ10) 200 mg PO DAILY 05/27/22 [History Last Taken Unknown] magnesium citrate 100 mg tablet 400 mg PO DAILY 05/27/22 [History Last Taken U nknown] multivitamin 1 tab PO DAILY 05/27/22 [History Last Taken Unknown] omega 5-ugp-luk-fish oil 300 mg-1,000 mg capsule (Fish Oil) 1 cap PO DAILY 05/27/22 [History Last Taken Unknown] Allergy/AdvReac Type Severity Reaction Status Date / Time latex Allergy Rash Verified 06/19/22 09:24 Family History (Updated 05/27/22 @ 08:40 by Karen Redman) Mother Hypertension Heart disease CVA (cerebral vascular accident) Father Asthma Heart disease Surgical History History of colonoscopy Hx of appendectomy Hx of tonsillectomy Hx of tubal ligation Social History (Updated 05/27/22 @ 08:41 by Karen Redman) household members: spouse Smoking Status: Never smoker alcohol intake: never Past Medical/Surgical History Planned Operation Planned Operative Procedure/s: COLONOSCOPY Previous Hospitalizations/Surgeries HX Hospitalizations: No Any Problems With Anesthesia: No You/Your Family Experience Fever (Hyperthermia) With Anes: No Cholinesterase deficiency: No Cardiovascular Hx Hypertension: No Respiratory Hx Sleep Apnea: No Hx Respiratory Tract Infection/Cold (presently): No Do You Snore Loudly (louder than talking or can be heard): No Do You Often Feel Tired/ Fatigued/ Sleepy Dring Daytime?: No Has Anyone Observed You Stop Breathing During Sleep?: No Result (for STOP score): Negative Smoking Status: Never smoker Neurological Does patient have nerve stimulator: No Miscellaneous Recent Exposure to Contagious Disease: No Allergies latex Allergy (Verified 06/19/22 09:24) Rash wheezing Discharge Is Pt Admitted From a Group Home, or a Detention: No After D/C, Where Do you Plan to Go: Return Home Vital Signs Vital Signs Vital Signs: 06/19/22 09:06 06/19/22 09:06 Temperature 97.6 F L Temperature Source Temporal Pulse Rate 73 Respiratory Rate 16 Respiratory Pattern Normal Blood Pressure 125/66 H Blood Pressure Mean 85 Blood Pressure Source Monitor Blood Pressure Position Semi-Fowlers Blood Pressure Location Left Arm Pulse Ox 98 Oxygen Delivery Method Room Air Weight Weight: 140 lb Body Mass Index (BMI) 26.4 Physical Exam Const alert, oriented x3 and no apparent distress HEENT normocephalic and head/scalp atraumatic Resp normal respiratory effort Cardio regular rate GI soft to palpation and non-tender; Negative for non-distended Palpation: Negative for guarding Extremity no clubbing, cyanosis or edema Neuro CN's II-XII intact bilaterally Psych mental status grossly normal Assessment & Plan Assessment/Plan (1) Encounter for screening for malignant neoplasm of colon: Surgery Risks - Colonoscopy Risks Include but are not Limited To: Risks include but are not limited to: Bleeding, perforation requiring further surgery, inability to complete colonoscopy requiring barium enema.
--- NOTE | 2022-06-19 10:00 | COLBX_PTH ---
PATIENT: SARI JORDAN LOC: EN U#:[id number] AGE/SX: 76/F ROOM: RE06/19/[address]: Dr. Mariely Tapia MD : 1945 BED: DIS: 06/19/2022 SPEC #: [id number] RECD: 06/19/22 10:50 STATUS: YECENIA REQ #: [id number] RENATA: 06/19/22 10:[address]: Mariely Tapia DEPT: SURGICAL PATHOLOGY RECD BY: Faye Kline ENTERED: 06/19/22 12:23 SP TYPE: COLON BX OTHR DR: Dr. Elmo Cooney MD Tissues: Rectum, NOS Procedures: Surgery Specimen Level IV HEADER OPERATION: Colonoscopy ? open access (MAC) and polypectomy PRE-OP DIAGNOSIS: Screening TISSUE SUBMITTED: Rectal polyp MICROSCOPIC DIAGNOSIS Rectal polyp, polypectomy: Fragments of hyperplastic polyp. SJ:rajni 06/20/2022 MICROSCOPIC DESCRIPTION Slides are reviewed. GROSS DESCRIPTION Received in fixative is one container labeled with the patient's name and designated rectal polyp. The specimen consists of two irregular fragments of light shane soft tissue that in aggregate measure 1.0 x 0.3 x 0.1 cm. The specimen is totally submitted in one cassette. / AM:rajni 06/19/2022 TC:1 CPT: 42747
--- NOTE | 2022-06-19 10:27 | OP.COLON_ITS ---
Patient Name: Sparkle Pina Procedure Date: 06/19/2022 9:41 AM Date of : 1945 Age: 76 Procedure: Colonoscopy Indications: Screening for colorectal malignant neoplasm Providers: Mariely Tapia MD Medicines: Monitored Anesthesia Care Patient Profile: This is a 76 year old female. Last Colonoscopy: more than 10 years ago. Complications: No immediate complications. Procedure: Pre-Anesthesia Assessment: - Prior to the procedure, a History and Physical was performed, and patient medications and allergies were reviewed. The patient's tolerance of previous anesthesia was also reviewed. The risks and benefits of the procedure and the sedation options and risks were discussed with the patient. All questions were answered, and informed consent was obtained. Prior Anticoagulants: The patient has taken no previous anticoagulant or antiplatelet agents. ASA Grade Assessment: Per anesthesia. After reviewing the risks and benefits, the patient was deemed in satisfactory condition to undergo the procedure. After I obtained informed consent, the scope was passed under direct vision. Throughout the procedure, the patient's blood pressure, pulse, and oxygen saturations were monitored continuously. The colonoscope was introduced through the anus and advanced to the cecum, identified by the appendiceal orifice, ileocecal valve and palpation. The colonoscopy was performed without difficulty. The patient tolerated the procedure well. The quality of the bowel preparation was good. Scope In: 9:58:55 AM Scope Withdrawal Time 0 hours 11 minutes 10 seconds Scope Out: 10:18:26 AM Total Procedure Duration Time 0 hours 19 minutes 31 seconds Findings: Hemorrhoids were found on perianal exam. Non-bleeding external hemorrhoids were found. The hemorrhoids were small. A less than 5 mm polyp was found in the rectum. The polyp was sessile. The polyp was removed with a cold biopsy forceps. Resection and retrieval were complete. Impression: - Hemorrhoids found on perianal exam. - Non-bleeding external hemorrhoids. - One less than 5 mm polyp in the rectum, removed with a cold biopsy forceps. Resected and retrieved. Recommendation: - Await pathology results. - Repeat colonoscopy based on path and overall health at time of repeat if it is needed per path. - Continue present medications. Procedure Code(s): --- Professional --- 83973, PT, Colonoscopy, flexible; with biopsy, single or multiple Diagnosis Code(s): --- Professional --- Z12.11, Encounter for screening for malignant neoplasm of colon K64.4, Residual hemorrhoidal skin tags K62.1, Rectal polyp CPT copyright 2017 [employer]. All rights reserved. The codes documented in this report are preliminary and upon busperson review may be revised to meet current compliance requirements. MD Mariely Euceda MD 06/19/2022 10:26:23 AM This report has been signed electronically. Number of Addenda: 0 Note Initiated On: 06/19/2022 9:41 AM
--- NOTE | 2022-06-19 10:27 | OP.CCLET_ITS ---
06/19/2022 Elmo Cooney MD [address] [id number] Re : Colonoscopy procedure for Sparkle Pina Dear Dr. Cooney This procedure was performed on Sunday, June 19, 2022. My impressions and recommendations are as follows: Impressions : - Hemorrhoids found on perianal exam. - Non-bleeding external hemorrhoids. - One less than 5 mm polyp in the rectum, removed with a cold biopsy forceps. Resected and retrieved. Recommendations : - Await pathology results. - Repeat colonoscopy based on path and overall health at time of repeat if it is needed per path. - Continue present medications. My findings are described in the full procedure note, which is enclosed. If I can be of further assistance, please feel free to contact me at Doctor phone number(s): , Work: . Sincerely, MD Mariely Euceda MD 06/19/2022 10:26:23 AM This report has been signed electronically.
== END 2022-06-19 11:15 | disposition home or self-care (01) ==
LOC: EN 08:49 → AC 08:50
PROVIDERS: PCP Family Medicine; Referring Provider Family Medicine; Visit Provider Surgery
PROC: 0DJD8ZZ Inspection of Lower Intestinal Tract, Via Natural or Artificial Opening Endoscopic (ICD-10-PCS; CPT 45378; principal; 2022-06-19 09:55)
DX: Z12.11 Encounter for screening for malignant neoplasm of colon (principal); K64.4 Residual hemorrhoidal skin tags; E78.00 Pure hypercholesterolemia, unspecified; K62.1 Rectal polyp; E03.9 Hypothyroidism, unspecified; Z79.890 Hormone replacement therapy; Z79.899 Other long term (current) drug therapy
CPT/HCPCS: 45380; 88305; J7120; J2405

== ENCOUNTER → 2022-07-02 | Outpatient (CLI) | payer MEDICARE, OTHER, SELFPAY ==
--- NOTE | 2022-07-02 15:07 | BI_ITS ---
MAMMOGRAPHY - BILATERAL SCREENING REASON FOR EXAM: Female, 76 years old. Routine annual screening examination. PERTINENT HISTORY: Non-contributory. TECHNIQUE: Digital bilateral breast altagracia (3D mammographic acquisition) in the CC and MLO projections. 2-D mediolateral oblique (MLO) and craniocaudad (CC) views of both breasts were obtained. CAD: Full Field Digital Mammography with Computer Added Detection was performed. COMPARISON: Comparison is made with prior study October 09, 2017 and August 07, 2015. FINDINGS: Breast Composition: There are scattered areas of fibroglandular density. There are no dominant masses or suspicious calcifications. Stable small benign-appearing bilateral axillary lymph nodes. No other significant abnormalities are identified. There has been no significant change since the prior study. BI/SCRN MAMM (CAD)W/ALTAGRACIA BILAT IMPRESSION: Stable bilateral screening mammogram. Yearly follow-up mammogram recommended. (A) ASSESSMENT CATEGORY: BIRADS Category 2: Benign. A letter regarding these results will be sent to the patient by the facility within 30 days. Approximately 10% of breast cancers are not detected by mammography. A normal mammogram should not delay biopsy of a clinically suspicious abnormality. [id number] Electronically Signed: Joaquin Colon MD at 9:01 EDT ,
--- NOTE | 2022-07-02 15:21 | BD_ITS ---
STUDY: DUAL ENERGY X-RAY ABSORPTIOMETRY / DXA REASON FOR EXAM: Female, 76 years old. Z780 TECHNIQUE: Bone Mineral Density (BMD) measurements of lumbar spine and bilateral hips were obtained. COMPARISON: Comparison is made with prior study dated October 09, 2017. FINDINGS: Lumbar Spine (L1-L4): g/cm2 (1.187) / T-score (0.8) / Z-score (3.4) Findings are suggestive of normal bone density with a low fracture risk. Left Femur Total: g/cm2 (0.890) / T-score (-0.4) / Z-score (1.4) Left Femoral Neck: g/cm2 (0.719) / T-score (-1.2) / Z-score (1.0) Right Femur Total: g/cm2 (0.923) / T-score (-0.2) / Z-score (1.7) Right Femoral Neck: g/cm2 (0.784) / T-score (-0.6) / Z-score (1.5) The T-Scores on the most recent prior examination were: Lumbar Spine (L1-L4): There has been improvement of bone density since the previous examination. Left Femur Total: which represents a worsening of 4%. Right Femur Total: which represents an improvement of 2.3%. BD/Dexa Bone Density Study IMPRESSION: The patient is considered osteopenic as outlined below according to World Aren Organization (WHO) criteria with a low fracture risk. There has been improvement of bone density since the previous examination. Reference Information: The T-score is the number of standard deviations above or below the standard which is normal for young adults at their peak bone mineral density. The World Health Organization (WHO) interprets the T-scores as follows: Above -1 Normal bone density Between -1 and -2.5 Osteopenia Equal to / or below -2.5 Osteoporosis As a practical clinical guideline, osteopenia may be graded as follows: Mild -1 through -1.5 Moderate -1.6 through -2.0 Severe -2.1 through -2.4 The Z-score is the number of standard deviations above or below age-matched controls. A Z-score of less than -1.5 would be considered abnormal. References: 1. NIH Osteoporosis and Related Bone Diseases www osteo.org 2. International Society for Clinical Densitometry www iscd.org 3. National Osteoporosis Foundation www nof.org Electronically Signed: Joaquin Colon MD at 12:34 EDT ,
== END | disposition home or self-care (01) ==
LOC: OPBD 15:05
PROVIDERS: PCP Family Medicine; Referring Provider Family Medicine; Visit Provider Family Medicine
DX: Z12.31 Encounter for screening mammogram for malignant neoplasm of breast (principal); Z78.0 Asymptomatic menopausal state
CPT/HCPCS: 77063; 77067; 77080

== ENCOUNTER → 2022-11-06 | Outpatient (CLI) | payer MEDICARE, OTHER, SELFPAY ==
[2022-11-06 13:01] LABS: Erythrocyte Sedimentation Rate 9 mm/hr (0-30)
[2022-11-06 13:04] LABS: Absolute Lymphocyte Count 2.83 X10^3/uL (0.83-4.51); Absolute Neutrophil Count 3.7 X10^3/uL (2.0-7.7); Basophil# 0.04 X10^3/uL; Basophil% 0.5 % (0-1); Eosinophil# 0.37 X10^3/uL; Eosinophils% 4.8 % (0-5); Hematocrit 45.1 % (37-47); Hemoglobin 14.3 g/dL (12.0-15.0); Lymphocyte # 2.83 X10^3/ul (0.83-4.51); Lymphocyte % 36.9 % (19-41); Mean Corp Hgb Conc 31.7 g/dL (32-36); Mean Corpuscular Hgb 29.4 pg (27.0-32.0); Mean Corpuscular Volume 92.8 fL (81-99); Mean Platelet Vol. 11.9 fl (6.2-12.0); Monocyte# 0.68 X10^3/uL; Monocyte% 8.9 % (0-10); NRBC Flagged by Analyzer 0 % (0-5); Neutrophil # 3.73 X10^3/uL (2.7-7.7); Neutrophil % 48.8 % (47-70); Platelet Count 194 K/mm3 (150-450); RBC Distribution Width CV 13.2 % (11.6-14.6); RBC Distribution Width SD 44.9 fl (35.1-43.9); Red Blood Count 4.86 M/mm3 (4.2-5.4); White Blood Count 7.7 K/mm3 (4.4-11.0)
[2022-11-06 13:08] LABS: ALB/GLOB Ratio 1.1 RATIO (0.9-2.4); AST(SGOT) 27 U/L (15-37); Alanine Aminotransfer ALT/SGPT 32 U/L (13-56); Albumin, Serum 3.7 g/dL (3.2-5.0); Alkaline Phosphatase 73 U/L (45-117); Anion Gap 2 (5-15); BUN 16 mg/dL (7-18); BUN/Creat Ratio 18.3 RATIO (10-20); CRP < 2.90 mg/L (0.0-3.0); Calcium,Total 9.2 mg/dL (8.5-10.1); Chloride 104 mmol/L (98-107); Creatinine, Serum 0.87 mg/dL (0.55-1.02); EST Glomerular Filtration Rate 67 mL/min (>60); Est Glom Filt Rate - Afr Amer 81 mL/min (>60); Globulin 3.3 g/dL (2.2-4.2); Glucose 88 mg/dL (74-106); Sodium Level 137 mmol/L (136-145)
== END | disposition home or self-care (01) ==
PROVIDERS: PCP Family Medicine
DX: M05.79 Rheumatoid arthritis with rheumatoid factor of multiple sites without organ or systems involvement (principal); M35.00 Sjogren syndrome, unspecified; Z79.899 Other long term (current) drug therapy
CPT/HCPCS: 36415; 80053; 85025; 85652; 86140

== ENCOUNTER → 2023-03-10 | Outpatient (CLI) | payer MEDICARE, OTHER, SELFPAY ==
--- OUTSIDE RECORDS SUMMARY | 2023-03-10 09:39 | XMS RPT_ITS | CCD ---
Author Name Unknown Address [address] [place] [address] Organization [facility] Care Team Providers Care [employer] Name Role Phone Pending Provider Unavailable Unavailable Ivet CORTES, Elmo Jones Primary Care Provider Elmo Guzman MD Primary Care Provider 1( [phone] Elmo Guzman MD Primary Care Provider ELMO GUZMAN Primary Care Unavailable KEMI RUFF Referring Unavailable KEMI RUFF Attending Unavailable ELMO GUZMAN Primary Care Unavailable PHILLIP PINA II [facility] Primary Care Unavailable Allergies Allergy Classification Reported Allergen(s) Allergy Type Date of Onset Reaction(s) Facility (10 sources) Codeine; Translations: [CODEINE] Drug Allergy 05-05-2002 [facility] (10 sources) Latex; Translations: [LATEX] Allergy to substance 05-05-2002 [facility] (10 sources) Pentazocine; Translations: [PENTAZOCINE] Drug Allergy 05-05-2002 [facility] (10 sources) Propoxyphene; Translations: [PROPOXYPHENE] Drug Allergy 05-05-2002 [facility] Medications Current Medications Medication Drug Class(es) Dates Sig (Normalized) Sig (Original) phenylephrine hydrochloride 25 mg/ml ophthalmic solution (1 source) alpha-1 Adrenergic Agonist Start: 09-19-2022 End: 09-20-2022 PHENYLephrine 2.5 % 1 Drop (AK-DILATE, ZEHRA-SYNEPHRINE) tropicamide 10 mg/ml ophthalmic solution (1 source) Anticholinergic Start: 09-19-2022 End: 09-20-2022 tropicamide 1 % 1 Drop (MYDRIACYL) Completed/Discontinued Medications Medication Drug Class(es) Dates Sig (Normalized) Sig (Original) atorvastatin 10 mg oral tablet (9 sources) HMG-CoA Reductase Inhibitor Start: 11-03-2006 take 1 tablet by mouth once daily atorvastatin 10 mg ORAL Tab Take 10 mg by mouth once daily. 0 11/03/2006 Active Problems Active Problems Problem Classification Problem Date Documented Date Episodic/Chronic Cataract (19 sources) Nuclear senile cataract; Translations: [Age-related nuclear cataract, unspecified eye] Onset: 5 09-08-2014 Chronic Disorders of lipid metabolism (9 sources) Hyperlipidemia; Translations: [Hyperlipidemia, unspecified] Onset: 1 07-26-2010 Chronic Fracture of upper limb (13 sources) Fracture of upper end of humerus; Translations: [Aftercare for healing traumatic fracture of upper arm] Episodic Inflammation; infection of eye (except that caused by tuberculosis or sexually transmitteddisease) (10 sources) Keratoconjunctivitis sicca; Translations: [Keratoconjunctivitis sicca, not specified as Sjogren's, unspecified eye] Onset: 5 09-08-2014 Chronic Other aftercare (1 source) Long-term current use of immunosuppressive drug; Translations: [Other intermediate teacher (current) drug therapy] 11-16-2022 Episodic Other connective tissue disease (13 sources) Muscle weakness of upper limb; Translations: [Muscle weakness (generalized)] Episodic Other eye disorders (10 sources) Bilateral vitreous floaters; Translations: [Other vitreous opacities, bilateral] Onset: 7 02-04-2017 Chronic Other non-traumatic joint disorders (13 sources) Decreased range of shoulder movement; Translations: [Stiffness of joint, not elsewhere classified, shoulder region] Episodic Rheumatoid arthritis and related disease (10 sources) Rheumatoid arthritis; Translations: [Rheumatoid arthritis, unspecified] Onset: 3 02-25-2018 Chronic Spondylosis; intervertebral disc disorders; other back problems (9 sources) Spondylosis; Translations: [Spondylosis, unspecified] Onset: 3 06-20-2003 Chronic Past or Other Problems Problem Classification Problem Date Documented Da te Episodic/Chronic Blindness and vision defects (20 sources) Hypermetropia; Translations: [Hypermetropia, unspecified eye] Onset: 09-08-2014 09-08-2014 Episodic Other eye disorders (9 sources) Corneal scars and opacities; Translations: [Other corneal scars and opacities] Onset: 09-08-2014 09-08-2014 Episodic Results Test Name Value Interpretation Reference Range Facil ity Vital Signs Date Time Vital Sign Value Performing Clinician Faci litanayeli 11-14-2022 10:08-0400 Body temperature 97.9 [degF] Kemi Ruff MD Work Phone: [facility] 11-14-2022 10:08-0400 Body weight 65.55 kg Kemi Ruff MD Work Phone: [facility] 11-14-2022 10:08-0400 Diastolic blood pressure 59 mm[Hg] Kemi Ruff MD Work Phone: [facility] 11-14-2022 10:08-0400 Heart rate 74 /min Kemi Ruff MD Work Phone: [facility] 11-14-2022 10:08-0400 Systolic blood pressure 136 mm[Hg] Kemi Ruff MD Work Phone: [facility] Encounters Encounter Date Encounter Type Care Provider Facility Start: 01-09-2023 Refill Kemi Miller Work Phone: Rheumatology Procedures Date Procedure Procedure Detail Performing Clinician Start: 09-11-2021 Adult depression screening assessment Kemi Ruff MD Work Phone: Start: 10-13-2019 Adult depression screening assessment Kemi Ruff MD Work Phone: Plan of Treatment Date Care Activity Detail Author Start: 08-09-2031 Urine microalbumin profile [facility] Start: 11-14-2022 End: 11-22-2022 CLINICAL TRIAL DRAW [facility] Fou ndation Work Phone: Immunizations Immunization Date Immunization Notes Care Provider Silvia ndiaye 12-06-2021 influenza (HD-IIV4) vaccine, age 65+ yr, high dose, quadrivalent, PF (FLUZONE HIGH-DOSE) Sharon Goottoniel Work Phone: [facility] 12-06-2021 influenza virus vacc ine, unspecified formulation Sharon Goottoniel Work Phone: [facility] 08-08-2021 tetanus toxoid, redu negro diphtheria toxoid, and acellular pertussis vaccine, adsorbed Kemi Ruff MD Work Phone: [facility] 01-12-2021 influenza, high-dose , quadrivalent vaccine (FLUZONE HIGH DOSE QUADRIVALENT) Kemi Ruff MD Work Phone: [facility] 02-25-2020 COVID-19 original vaccine, full dose, monovalent (MODERNA) Kemi Ruff MD Work Phone: [facility] 02-25-2020 influenza, seasonal, injectable Kemi Ruff MD Work Phone: [facility] 01-10-2020 zoster vaccine recombinant Kemi Ruff MD Work Phone: [facility] 12-01-2019 influenza (aIIV4) vaccine, age 65+ yr, quadrivalent, PF (FLUAD QUADRIVALENT) Kemi Ruff MD Work Phone: [facility] 11-25-2019 influenza, injectabl e, quadrivalent, contains preservative Kemi Ruff MD Work Phone: [facility] 11-08-2019 zoster vaccine recombinant Kemi Ruff MD Work Phone: [facility] 12-17-2018 influenza, high dose seasonal, preservative-free Kemi Ruff MD Work Phone: [facility] 01-28-2014 pneumococcal polysaccharide vaccine, 23 valent Kemi Ruff MD Work Phone: [facility] 02-12-2011 tetanus toxoid, redu negro diphtheria toxoid, and acellular pertussis vaccine, adsorbed Kemi Ruff MD Work Phone: [facility] 01-06-2009 novel influenza-H1N1 -09, preservative-free, injectable Kemi Ruff MD Work Phone: [facility] Payers Date Payer Category Payer Medicare [id number] 2015 Private Health Insurance HUMANA HUMANA MEDICARE SUPPLEMENT [id number] 2015-Present [phone] [address] [address] [place] [address] Indemnity [id number] 2015 Private Health Insurance HUMANA HUMANA MEDICARE SUPPLEMENT [id number] 2015-Present [phone] [address] [address] [place] [address] Indemnity [id number] 2011 Medicare MEDICARE MEDICAR E A AND B [id number] 2011-Present [phone] [address] [address] [place] [address] Medicare [id number] 2011 Medicare MEDICARE MEDICAR E A AND B [id number] 2011-Present [phone] [place] [address] Medicare [id number] 2011 Medicare [id number] Unknown Social History Date Type Detail Facility Tobacco smoking stat [facility] Never smoked tobacco [facility] Start: 10-14-2019 End: 11-14-2022 Alcohol intake Current drinker of alcohol (finding) [facility] Start: 10-14-2019 End: 11-14-2022 Alcohol intake [facility] Start: 1945 Sex Assigned At Female C [facility] Start: 09-12-2021 End: 11-14-2022 Tobacco use panel [facility] Adult Depression Screening Assessment 0 [facility] Start: 10-13-2019 Gender identity Identifies as female gender (finding) [facility] Start: 09-26-2020 Sexual orientation Heterosexual (colleen steven) [facility] Clinical Notes 06-13-2021 to 01-09-2023 Telephone Encounter - Nicolle Guerra - 01/09/2023 10:20 AM ESTTelephone Encounter - Kelsi Morgan MA - 01/09/2023 9:12 AM ESTSharon Fox - 11/14/2022 12:29 PM EDTPatient Instructions Note Date & Type Note Facility 01-09-2023 Miscellaneous Notes Most recent Rheumatology visit: 11/14/2022 (with Kemi Ruff) Recent Office Visits - This Specialty 11/14/2022 Rheumatoid arthritis involving multiple sites with positive rheumatoid factor (HCC) Rheumatology Kemi Ruff MD 09/12/2021 Rheumatoid arthritis involving multiple sites with positive rheumatoid factor (HCC) Rheumatology [facility] [place] Kemi Ruff MD 09/27/2020 Rheumatoid arthritis involving multiple sites with positive rheumatoid factor (HCC) [facility] Kemi Ruff MD Upcoming Rheumatology Appointments - Next 365 Days Visit Type Date Time Department [facility] 05/15/2023 10:40 AM [facility] A[facility] Backpack message sent to patient as reminder to complete updated labs CBC: None on file in the last 6 months Vitamin D: None on file in the last 6 months LFT: None on file in the last 6 months Hepatic Function: Creatinine: None on file in the last 6 months ESR/CRP: None on file in the last 6 months Uric Acid: None on file in the last 6 months Open Standing (Multiple Instance) Lab Orders None Open Future (Single Instance) Lab Orders None Nicolle Guerra RN [facility] pharmacy requesting refills documented in this encounter [facility] 11-14-2022 Note HNO ID: [id number] Author: Sharon Fox Service: ? Author Type: ? Type: Progress Notes Filed: 11/14/2022 12:30 PM Note Text: Clinical Research Study Orthopaedic AND Rheumatologic [place] IRB# [id number] Title: Defining a Personalized Treatment Approach to Rheumatoid Arthritis: Using Genetic Markers of TNFi Response. PI: Dr. Kemi Ruff Optional Co-Enrollment: IRB# [id number] Title: [facility] BioRepository (CC-BioR) PI: Dr. Sabrina Hyde Informed Consent Documentation Research staff presented subject with IRB approved Informed Consent Documents for the above studies and engaged in a formal discussion of the study information, why the study is being done, number of subjects expected to participate, number of study visits, procedures, risks, benefits, alternative therapy, privacy, confidentiality, injury, costs, questions and rights of the research subject. The subject was encouraged to take their time to consider their options and was offered the opportunity to take study information home to review with family members or other individuals of their choice. choice. After all subjects questions were answered to their satisfaction, the subject agreed to participation in both studies and willingly signed and dated the IRB approved informed consent documents. Copies of the signed informed consent documents was given to the subject and the original documents placed in the subject?s study file. Consent obtained November 14, 2022 Subject was assigned #: [id number] Were labs drawn and processed? Yes Did subject complete the questionnaires? Yes Did physician complete CDAI? Yes Sharon Baez Research Coordinator - Rheumatology AND Immunologic Diseases Pager: [phone] [facility] 11-14-2022 History of Present illness Narrative Clinical Research Study Orthopaedic & Rheumatologic [place] IRB# [id number] Title: Defining a Personalized Treatment Approach to Rheumatoid Arthritis: Using Genetic Markers of TNFi Response. PI: Dr. Kemi Ruff Optional Co-Enrollment: IRB# [id number] Title: [facility] BioRepository (-BioR) PI: Dr. Sabrina Hyde Informed Consent Documentation Research staff presented subject with IRB approved Informed Consent Documents for the above studies and engaged in a formal discussion of the study information, why the study is being done, number of subjects expected to participate, number of study visits, procedures, risks, benefits, alternative therapy, privacy, confidentiality, injury, costs, questions and rights of the research subject. The subject was encouraged to take their time to consider their options and was offered the opportunity to take study information home to review with family members or other individuals of their choice. choice. After all subjects questions were answered to their satisfaction, the subject agreed to participation in both studies and willingly signed and dated the IRB approved informed consent documents. Copies of the signed informed consent documents was given to the subject and the original documents placed in the subject s study file. Consent obtained November 14, 2022 Subject was assigned #: [id number] Were labs drawn and processed? Yes Did subject complete the questionnaires? Yes Did physician complete CDAI? Yes Sharon Baez Research Coordinator - Rheumatology & Immunologic Diseases Pager: [phone] documented in this encounter [facility] 11-14-2022 Note HNO ID: [id number] Author: Kemi Ruff MD Service: ? Author Type: Physician Type: Progress Notes Filed: 11/16/2022 11:17 PM Note Text: Rheumatology Clinic Date of Service: 11/14/2022 Patient: Sparkle Pina Medical Record: [id number] Primary Care Physician: Elmo Guzman MD Last Rheumatology visit: 09/12/2021 (with Kemi Ruff) History of Present Illness Sparkle Pina is a 77 year old White female who presents on 11/14/2022 for an in-person visit for evaluation of Rheumatoid Arthritis. She is currently taking etanercept, meloxicam. RA erosive sero positive CCP Antibody, IgG >250 (H) Rheumatoid Factor 26 (H) Onset of symptoms began at age 51. Sparkle is both RF - 26 (08/03/2014) and CCP - 275 (08/03/2014) positive. She has erosive disease (ankylosing). There are no rheumatoid nodules present. She does not have any joint swelling. She reports morning stiffness . HISTORY OF PRESENT ILLNESS Sparkle Pina is a 77 year old White female who presents on 09/27/2020 for in person visit for evaluation of No chief complaint on file.. RA symptoms started at age . Component Latest Ref Rng AND Units 08/03/2014 CCP Antibody, IgG <20 Units >250 (H) Rheumatoid Factor <20 IU/mL 26 (H) 4-6 miles 4 X week Host exercise class 2 X times week Robert chi every wed HISTORY RA stable Remains active, Robert chi Enbrel No ISR Travels some Has been gardening a lot Some tenderness in L elbow an dL foot and L thumb intermittent with heart failure symptoms, hospitalized x 2 Musculoskeletal History Age at start of MSK symptoms: 51 years No joint swelling No joint replacements No other arthritis-related surgery Rheumatoid Arthritis History Age at start of arthritis symptoms: 51 years Rheumatoid Factor Positive Anti CCP Positive Erosive Erosive: ankylosing No rheumatoid nodules Morning stiffness No joint swelling No joint replacement No other RA-related surgery Extra-Articular Features / Comorbidities Dry eye Dry mouth Other RA Symptoms: ankylosing both wrist Last Orthopaedic Surgery in Each Joint Patient-Entered Data Pain Scores Pain Evaluation 07/16/2017 11/11/2022 11/14/2022 Pain Score 4 4 4 Location (No Data) Elbow-Left - Location Comment Right Shoulder pain - - Description Aching Aching - Duration (#) (No Data) 2 - Duration (Timeframe) - Months - Frequency Continuous Intermittent Intermittent Intervention Relaxation;Reposition Medication;Exercise;Heat - PROMIS Assessments PROMIS Global Health - (T-Scores - the mean of general population = 50. Five points is a clinically meaningful difference.) 09/26/2020 09/11/2021 11/11/2022 Physical T-Score 50.8 54.1 44.9 Mental T-Score 56 56 53.3 PROMIS CAT Pain Interference 09/26/2020 09/11/2021 11/11/2022 PROMIS Pain Interference T-Score (range: 10 - 90) 56 (mild) 53 (within normal limits) 54 (within normal limits) PROMIS Pain Interference Percentile 27 % 38 % 34 % PROMIS CAT Fatigue 09/26/2020 09/11/2021 11/11/2022 PROMIS Fatigue T-Score 59 (mild) 53 (within normal limits) 55 (within normal limits) PROMIS Fatigue Percentile 18 % 38 % 31 % PROMIS PHYSICAL FUNCTION T-SCORE 09/26/2020 09/11/2021 11/11/2022 PROMIS Physical Function T-Score 48 (within normal limits) 48 (within normal limits) 44 (mild dysfunction) Physical Function Percentile 42 % 42 % 27 % RAPID 3 [place] Activities of Daily Living 11/11/2022 9:12 PM 09/11/2021 7:33 PM 09/26/2020 3:19 PM First answer obtained - 10/13/2019 9:37 AM Dress self? Without ANY difficulty Without ANY difficulty Without ANY difficulty Without ANY difficulty Get in and out of bed? Without ANY difficulty Without ANY difficulty Without ANY difficulty Without ANY difficulty Walk outdoors? Without ANY difficulty Without ANY difficulty Without ANY difficulty Without ANY difficulty Wash and dry body? Without ANY difficulty Without ANY difficulty Without ANY difficulty Without ANY difficulty Get in and out of car? Without ANY difficulty Without ANY difficulty Without ANY difficulty RAPID 3 Disease Activity Weighed Score Levels: 0 - 1: Near Remission 1.3 - 2.0: Low Severity 2.3 - 4.0: Moderate Severity 4.3 - 10.0: High Severity RAPID-3 Weighed Score 09/26/2020 09/11/2021 11/11/2022 RAPID 3 Weighed Score - - - RAPID 3 Weighed Score 1.33 (Low Severity (LS)) Incomplete 2.11 (Moderate Severity (MS)) Patient Health Questionnaire (PHQ-9) No flowsheet data found.(0-4) minimal depression, (5-9) mild depression, (10-14) moderate depression, (15-19) moderately severe depression, (20-27) severe depression Review of Systems Review of Systems CONSTITUTION: Negative for: Fever and Recent weight change HEENT: Positive for: Dry mouth Negative for: Nosebleeds, Mouth sores and Trouble swallowing RESPIRATORY: Negative for: Cough, Shortness of breath and Pain with breathing GASTROINTESTINAL: Negative for: Melena, Diarrhea, Heartburn and Abdominal pain (more content not included)... [facility] 11-14-2022 History of Present illness Narrative Images from the original note were not included. Rheumatology Clinic Date of Service: 11/14/2022 Patient: Sparkle Pina Medical Record: [id number] Primary Care Physician: Elmo Guzman MD Last Rheumatology visit: 09/12/2021 (with Kemi Ruff) History of Present Illness Sparkle Pina is a 77 year old White female who presents on 11/14/2022 for an in-person visit for evaluation of Rheumatoid Arthritis. She is currently taking etanercept, meloxicam. RA erosive sero positive CCP Antibody, IgG >250 (H) Rheumatoid Factor 26 (H) Onset of symptoms began at age 51. Sparkle is both RF - 26 (08/03/2014) and CCP - 275 (08/03/2014) positive. She has erosive disease (ankylosing). There are no rheumatoid nodules present. She does not have any joint swelling. She reports morning stiffness . HISTORY OF PRESENT ILLNESS Sparkle Pina is a 77 year old White female who presents on 09/27/2020 for in person visit for evaluation of No chief complaint on file.. RA symptoms started at age . Component Latest Ref Rng & Units 08/03/2014 CCP Antibody, IgG <20 Units >250 (H) Rheumatoid Factor <20 IU/mL 26 (H) 4-6 miles 4 X week Host exercise class 2 X times week Robert chi every wed INTERVAL HISTORY RA stable Remains active, Robert chi Enbrel No ISR Travels some Has been gardening a lot Some tenderness in L elbow an dL foot and L thumb intermittent with heart failure symptoms, hospitalized x 2 Musculoskeletal History Age at start of MSK symptoms: 51 years No joint swelling No joint replacements No other arthritis-related surgery Rheumatoid Arthritis History Age at start of arthritis symptoms: 51 years Rheumatoid Factor Positive Anti CCP Positive Erosive Erosive: ankylosing No rheumatoid nodules Morning stiffness No joint swelling No joint replacement No other RA-related surgery Extra-Articular Features / Comorbidities Dry eye Dry mouth Other RA Symptoms: ankylosing both wrist Last Orthopaedic Surgery in Each Joint Patient-Entered Data Pain Scores Pain Evaluation 07/16/2017 11/11/2022 11/14/2022 Pain Score 4 4 4 Location (No Data) Elbow-Left - Location Comment Right Shoulder pain - - Description Aching Aching - Duration (#) (No Data) 2 - Duration (Timeframe) - Months - Frequency Continuous Intermittent Intermittent Intervention Relaxation;Reposition Medication;Exercise;Heat - PROMIS Assessments PROMIS Global Health - (T-Scores - the mean of general population = 50. Five points is a clinically meaningful difference.) 09/26/2020 09/11/2021 11/11/2022 Physical T-Score 50.8 54.1 44.9 Mental T-Score 56 56 53.3 PROMIS CAT Pain Interference 09/26/2020 09/11/2021 11/11/2022 PROMIS Pain Interference T-Score (range: 10 - 90) 56 (mild) 53 (within normal limits) 54 (within normal limits) PROMIS Pain Interference Percentile 27 % 38 % 34 % PROMIS CAT Fatigue 09/26/2020 09/11/2021 11/11/2022 PROMIS Fatigue T-Score 59 (mild) 53 (within normal limits) 55 (within normal limits) PROMIS Fatigue Percentile 18 % 38 % 31 % PROMIS PHYSICAL FUNCTION T-SCORE 09/26/2020 09/11/2021 11/11/2022 PROMIS Physical Function T-Score 48 (within normal limits) 48 (within normal limits) 44 (mild dysfunction) Physical Function Percentile 42 % 42 % 27 % RAPID 3 [place] Activities of Daily Living 11/11/2022 9:12 PM 09/11/2021 7:33 PM 09/26/2020 3:19 PM First answer obtained - 10/13/2019 9:37 AM Dress self? Without ANY difficulty Without ANY difficulty Without ANY difficulty Without ANY difficulty Get in and out of bed? Without ANY difficulty Without ANY difficulty Without ANY difficulty Without ANY difficulty Walk outdoors? Without ANY difficulty Without ANY difficulty Without ANY difficulty Without ANY difficulty Wash and dry body? Without ANY difficulty Without ANY difficulty Without ANY difficulty Without ANY difficulty Get in and out of car? Without ANY difficulty Without ANY difficulty Without ANY difficulty RAPID 3 Disease Activity Weighed Score Levels: 0 - 1: Near Remission 1.3 - 2.0: Low Severity 2.3 - 4.0: Moderate Severity 4.3 - 10.0: High Severity RAPID-3 Weighed Score 09/26/2020 09/11/2021 11/11/2022 RAPID 3 Weighed Score - - - RAPID 3 Weighed Score 1.33 (Low Severity (LS)) Incomplete 2.11 (Moderate Severity (MS)) Patient Health Questionnaire (PHQ-9) No flowsheet data found.(0-4) minimal depression, (5-9) mild depression, (10-14) moderate depression, (15-19) moderately severe depression, (20-27) severe depression Review of Systems Review of Systems CONSTITUTION: Negative for: Fever and Recent weight change HEENT: Positive for: Dry mouth Negative for: Nosebleeds, Mouth sores and Trouble swallowing RESPIRATORY: Negative for: Cough, Shortness of breath and Pain with breathing GASTROINTESTINAL: Negative for: Melena, Diarrhea, Heartburn and Abdominal pain MUSCULOSKELETAL: Positive for: Arthralgias, Joint swelling and Morning Joint Stiffness Negative for: Myalgias and Muscle weakness NEUROLOGICAL: Negative for: Headaches, Numbness and Memory loss SKIN: Negative for: Rash, Skin changes, Hair loss and Nail changes EYES: Positive for: Eye dryness Negative for: Eye pain, Eye redness and visual disturbance CARDIOVASCULAR: Negative for: Chest pain and Leg swelling GENITOURINARY: Negative for: Dysuria and Hematuria HEMATOLOGIC/LYMPHATIC: Negative for: Swollen glands All other reviewed and negative other than HPI. Past Medical History PAST MEDICAL HISTORY Diagnosis Date Hypothyroid Pure hypercholesterolemia 2004 RA (rheumatoid arthritis) ([facility]) 1990 Past Surgical History PAST SURGICAL HISTORY Procedure Laterality Date APPENDECTOMY LIG/TRNSXJ FLP TUBE ABDL/VAG APPR UNI/BI TONSILLECTOMY & ADENOIDECTOMY <AGE 13 Family History FAMILY HISTORY Problem Relation Age of Onset Ischemic Heart Disease Mother irregular heart beat Arthritis Mother Lipids Mother Stroke Mother Ischemic Heart Disease Father age 55 Asthma Brother Allergies Brother Diabetes Maternal Grandfather Social History Social History Tobacco Use Smoking status: Never Smokeless tobacco: Never Vaping Use Vaping Use: Never used Substance Use Topics Alcohol use: Yes Alcohol/week: 1.7 standard drinks of alcohol Comment: glass of wine once per 3 months Drug use: No Current Medications DMARDs / Biologics Treatment Start Date Stop Date Stop Reason Comment sulfasalazine methotrexate leflunomide Current Outpatient Medications on File Prior to Visit Medication Sig cholecalciferol, vitamin D3, (VITAMIN D3 ORAL) Take by mouth once daily. diclofenac (VOLTAREN ARTHRITIS PAIN) 1 % topical gel Apply to affected area as needed. As needed VITAMIN K2 ORAL Vitamin E 600 unit capsule Take by mouth once daily. 600 mg once a day Etanercept (ENBREL) 50 mg/mL (1 mL) injection INJECT 50 MG UNDER THE SKIN EVERY WEEK SYNTHROID 75 mcg tablet Take 75 mcg by mouth once daily. MAGNESIUM CITRATE ORAL Take by mouth. 400 mg once a day omega-3 fatty acids/vitamin e(FISH OIL 1,000 MG CAP) Take two(2) tablet two(2) times daily. ubidecarenone/vitamin e mixed(COQ10 SG 100 100 MG-100 UNIT CAP) once a day calcium carbonate/vitamin d3(CALTRATE-600 PLUS VITAMIN D3 600 MG-400 UNIT TAB) Take one(1) tablet daily. atorvastatin 10 mg ORAL Tab Take 10 mg by mouth once daily. MULTIVITAMIN TABLET Take one(1) tablet daily. No current facility-administered medications on file prior to visit. Labs CBC Latest Ref Rng & Units 08/13/2001 04/28/2006 WBC 4.0 - 11.0 k/uL 5.02 - HEMOGLOBIN 12.0 - 16.0 g/dL 14.0 - HEMATOCRIT 37 - 47 % 42.1 - PLATELETS 150 - 400 K/uL 178 141(L) ABS NEUT (ANC) 1.8 - 7.7 K/uL 2.07 - ABS LYMPH 1.0 - 4.0 k/uL 2.46 - CMP Latest Ref Rng & Units 08/13/2001 07/26/2010 SODIUM 132 - 148 mmol/L 141 142 POTASSIUM 3.5 - 5.0 mmol/L 4.1 3.9 CHLORIDE 98 - 110 mmol/L 103 102 CO2 23 - 32 mmol/L 31 30 GLUCOSE 65 - 100 mg/dL 89 81 BUN 8 - 25 mg/dL 16 17 CREATININE 0.70 - 1.40 mg/dL 0.9 0.86 CALCIUM, TOTAL 8.5 - 10.5 mg/dL 10.1 10.0 AST 7 - 40 U/L 29 38 ALT 0 - 45 U/L - 25 ALKALINE PHOSPHATASE 40 - 150 U/L - 47 RF and CCP Latest Ref Rng & Units 08/03/2014 RHEUMATOID FACTOR <20 IU/mL 26(H) CCP ANTIBODY, IGG <20 Units >250(H) ANCA Latest Ref Rng & Units 07/26/2010 MYELOPEROXIDASE <480 pmol/L 343 Imaging Bone Density: None on file Last XR Hand/Finger - Impression Only XR HAND GENERAL 3V PA/LAT/OBL BILAT Exam End: 03/19/2018 10:02 AM (Final result) Impression: IMPRESSION: Hands. Bilaterally ankylosed wrist joints would be consistent with chronic rheumatoid arthritis, not significantly changed in comparison to an examination of 5 1/2. Years earlier. Feet. Bilateral hammer and claw toes.... Last MRI Hand - Impression Only No resulted procedures found. Last XR Chest - Impression Only No resulted procedures found. Last XR Cervical Spine - Impression Only No resulted procedures found. Health Maintenance Current Immunizations Reviewed on 11/14/2022 Name Date COVID-19 vaccine, monovalent (MODERNA) 06/29/2021 , 12/26/2020 , 04/28/2020 , 03/31/2020 , 02/25/2020 influenza (HD-IIV3) vaccine 12/17/2018 influenza (HD-IIV4) vaccine 12/06/2021 , 01/12/2021 influenza (IIV3) vaccine 02/25/2020 influenza (IIV4) vaccine 11/25/2019 influenza (aIIV4) vaccine 12/01/2019 novel influenza ([id number]) vaccine 01/06/2009 pneumococcal (PPV23) vaccine 01/28/2014 tetanus diphtheria pertussis (Tdap) vaccine 08/08/2021 , 02/12/2011 zoster (RZV) vaccine 01/10/2020 , 11/08/2019 Physical Exam BP 136/59 Pulse 74 Temp (Src) 97.9 (Oral) Wt 144 lb 8 oz (65.5kg) Physical Exam Vitals reviewed. Constitutional: Appearance: Normal appearance. HENT: Head: Atraumatic. Eyes: Extraocular Movements: Extraocular movements intact. Conjunctiva/sclera: Conjunctivae normal. Pupils: Pupils are equal, round, and reactive to light. Cardiovascular: Rate and Rhythm: Normal rate and regular rhythm. Pulses: Normal pulses. Heart sounds: Normal heart sounds. Pulmonary: Breath sounds: Normal breath sounds. Abdominal: General: Abdomen is flat. Palpations: Abdomen is soft. Musculoskeletal: Cervical back: Normal range of motion. 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 Neurological: General: No focal deficit present. Psychiatric: Mood and Affect: Mood normal. Behavior: Behavior normal. Weight 11/14/2022 09/12/2021 09/27/2020 10/14/2019 10/01/2018 WEIGHT 144 lb 8 oz 149 lb 138 lb 139 lb 151 lb 3.2 oz Some recent data might be hidden Blood Pressure 11/14/2022 09/12/2021 09/27/2020 10/14/2019 10/01/2018 Systolic 136 114 132 127 133 Diastolic 59 71 63 51 81 Some recent data might be hidden There is currently no information documented on the homunculus. Go to the Rheumatology activity and complete the homunculus joint exam. Joint Exam 11/14/2022 No joint exam has been documented for this visit Impression and Plan RA erosive sero positive CCP Antibody, IgG >250 (H) Rheumatoid Factor 26 (H) Diagnoses: No diagnosis found. Orders this visit: Office Visit on 11/14/22 cholecalciferol, vitamin D3, (VITAMIN D3 ORAL) diclofenac (VOLTAREN ARTHRITIS PAIN) 1 % topical gel meloxicam (MOBIC) 7.5 mg tablet No follow-ups on file. CC: PCP: Elmo Guzman MD [address] [facility] [address] [facility] [address] Phone #: [phone] I spent a total of 30 minutes on the date of the service which included preparing to see the patient, [id number] patient care, completing clinical documentation, obtaining and/or reviewing separately obtained history, performing a medically appropriate examination, counseling and educating the patient/family/caregiver, ordering medications, tests, or procedures, independently interpreting results (not separately reported), and communicating results to the patient/family/caregiver. ____ Kemi Ruff MD Rheumatology Date: November 14, 2022 Time: 10:26 AM documented in this encounter [facility] 09-19-2022 Note HNO ID: [id number] Author: Phillip Pina II, OD Service: ? 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 Well tolerated at this time. Discussed possible future affect on daily activities to watch for. Monitor as instructed. H43.393 Vitreous floaters of both eyes Comment: Vitreal floaters stable both eyes. Retinas flat and intact with no apparent retinal tear or traction. Monitor yearly. H16.223 Keratoconjunctivitis sicca of both eyes not specified as Sjogren's Comment: Recommend use of Systane Complete 1 gt OU up to qid as needed for relief of symptoms. H52.03 Hyperopia of both eyes H52.223 Regular astigmatism of both eyes H52.4 Presbyopia Comment: Small shift in glasses power. Patient happy with present cheung. Monitor. I have confirmed and edited as necessary the relevant ophthalmic history, ROS, and the neuro exam findings as obtained by others. I have seen and examined Sparkle Pina. I have discussed the case and the management of this patient's care with the Resident/Fellow, if applicable. I also have reviewed and agree with the assessment and plan as stated above and agree with all of its relevant components. Phillip Pina II, OD [facility] 09-19-2022 Instructions Phillip Pina II, OD - 09/19/2022 2:34 PM EDT Assessment and Plan H25.813 Combined forms of age-related cataract of both eyes (primary encounter diagnosis) Comment: Mild cataract in both eyes. Well tolerated at this time. Discussed possible future affect on daily activities to watch for. Monitor as instructed. H43.393 Vitreous floaters of both eyes Comment: Vitreal floaters stable both eyes. Retinas flat and intact with no apparent retinal tear or traction. Monitor yearly. H16.223 Keratoconjunctivitis sicca of both eyes not specified as Sjogren's Comment: Recommend use of Systane Complete 1 gt OU up to qid as needed for relief of symptoms. H52.03 Hyperopia of both eyes H52.223 Regular astigmatism of both eyes H52.4 Presbyopia Comment: Small shift in glasses power. Patient happy with present cheung. Monitor. I have confirmed and edited as necessary the relevant ophthalmic history, ROS, and the neuro exam findings as obtained by others. I have seen and examined Sparkle Pina. I have discussed the case and the management of this patient's care with the Resident/Fellow, if applicable. I also have reviewed and agree with the assessment and plan as stated above and agree with all of its relevant components. Phillip Pina II, OD documented in this encounter [facility] 09-19-2022 History of Present illness Narrative Assessment and Plan H25.813 Combined forms of age-related cataract of both eyes (primary encounter diagnosis) Comment: Mild cataract in both eyes. Well tolerated at this time. Discussed possible future affect on daily activities to watch for. Monitor as instructed. H43.393 Vitreous floaters of both eyes Comment: Vitreal floaters stable both eyes. Retinas flat and intact with no apparent retinal tear or traction. Monitor yearly. H16.223 Keratoconjunctivitis sicca of both eyes not specified as Sjogren's Comment: Recommend use of Systane Complete 1 gt OU up to qid as needed for relief of symptoms. H52.03 Hyperopia of both eyes H52.223 Regular astigmatism of both eyes H52.4 Presbyopia Comment: Small shift in glasses power. Patient happy with present cheung. Monitor. I have confirmed and edited as necessary the relevant ophthalmic history, ROS, and the neuro exam findings as obtained by others. I have seen and examined Sparkle Stock Silvana. I have discussed the case and the management of this patient's care with the Resident/Fellow, if applicable. I also have reviewed and agree with the assessment and plan as stated above and agree with all of its relevant components. Phillip Pina II, OD documented in this encounter [facility] 08-05-2022 Miscellaneous Notes Most recent Rheumatology visit: 09/12/2021 (with Kemi Ruff) Recent Office Visits - This Specialty 09/12/2021 Rheumatoid arthritis involving multiple sites with positive rheumatoid factor (HCC) [facility] Kemi Ruff MD 09/27/2020 Rheumatoid arthritis involving multiple sites with positive rheumatoid factor (HCC) [facility] Kemi Ruff MD 10/14/2019 Rheumatoid arthritis involving multiple sites with positive rheumatoid factor (HCC) Rheumatology Kemi Ruff MD Upcoming Rheumatology Appointments - Next 365 Days Visit Type Date Time Department [facility] MEDICAL EXT 11/14/2022 10:20 AM [facility] A50 CBC: None on file in the last 6 months Vitamin D: None on file in the last 6 months LFT: None on file in the last 6 months Hepatic Function: Creatinine:None on file in the last 6 months ESR/CRP: None on file in the last 6 months Uric Acid: None on file in the last 6 months Open Standing (Multiple Instance) Lab Orders None Open Future (Single Instance) Lab Orders None Requested Prescriptions Pending Prescriptions Disp Refills Etanercept (ENBREL) 50 mg/mL (1 mL) injection 12 Each 1 Sig: INJECT 50 MG UNDER THE SKIN EVERY WEEK Received fax from [facility] requesting refills for enbrel documented in this encounter [facility] 11-12-2021 Miscellaneous Notes Most recent Rheumatology visit: 09/12/2021 (with Kemi Ruff) Recent Office Visits - This Specialty 09/12/2021 Rheumatoid arthritis involving multiple sites with positive rheumatoid factor (HCC) [facility] Kemi Ruff MD 09/27/2020 Rheumatoid arthritis involving multiple sites with positive rheumatoid factor (HCC) [facility] Kemi Ruff MD 10/14/2019 Rheumatoid arthritis involving multiple sites with positive rheumatoid factor (HCC) Rheumatology Kemi Ruff MD Upcoming Rheumatology Appointments - Next 365 Days No appointments to display CBC: None on file in the last 6 months Vitamin D: None on file in the last 6 months LFT: None on file in the last 6 months Creatinine:None on file in the last 6 months ESR/CRP: None on file in the last 6 months Uric Acid: None on file in the last 6 months Open Standing (Multiple Instance) Lab Orders None Open Future (Single Instance) Lab Orders None Nicolle Guerra RN documented in this encounter [facility] 06-13-2021 Miscellaneous Notes called human, . Turn around time is 24-72 hours. They will fax determination for Enbrel PF syringes. Patient has new pharmacy insurance. I sent the Enbrel refill request. Please process the [place] BIN [id number] PCN [id number] [facility] [id number] documented in this encounter [facility] 06-13-2021 Miscellaneous Notes Please approve prescription and any additional refills and e-script to designated pharmacy. 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 PINA presents with signs and symptoms consistent with and demonstrates impairments/limita tions in . They would benefit from skilled Physical Therapy with combination of manual therapy techniques to decrease myofascial and joint restrictions, as well as progression of exercises for ROM,flexibility, strength, core stabilization, and postural retraining, and body mechanics education thr oughout POC to progress towards independence with ADL s/IADL s and return to PLOF. * Clinical Presentation: Evolving with changing characteristics. * Level of Complexity: low * Problem List: activity limitations, ADLs/IADLs/self care skills, decreased functional level, fall risk, flexibility, motor function/control/tone, pain, participation restrictions, posture, range of motion/joint mobility and strength. [facility] Work Phone: History of Present illness Narrative* Ms. PINA presents with signs and symptoms consistent with Non-displaced Humerus Fracture RUE, as well as PT diagnosis of Right shoulder pain, Decreased AROM Right shoulder and weakness in RUE and demonstrates impairments/limitations in Right shoulder AROM and PROM, decreased MMT with gradingbased on ROM deficits this date and no manual resistance applied. Pt able to tolerated PROM well this date, but did have firm end feel in all ranges, with more restrictions into RUE ER. Pt also presented with myofascial restriction throughout RIght shoulder girdle and upper arm musculature. She reported good understanding of all edu and HEP with HO given and verbally reviewed. They would benefit from skilled Physical Therapy with combination of manual therapy techniques to decrease myofascial and joint restrictions, as well as progression of exercises for ROM, flexibility, strength, core stabilization, and postural retraining, and body mechanics education throughout POC to progress towards i ndependence with ADL s/IADL s and return to PLOF. * Clinical Presentation: Evolving with changing characteristics. * Level of Complexity: low * Problem List: activity limitations, ADLs/IADLs/self care skills, decreased functional level, fall risk, flexibility, motor function/control/tone, pain, participation restrictions, posture, range of motion/joint mobility and strength. [facility] Work Phone: History of Present illness Narrative* Ms. PINA presents with signs and symptoms consistent with Non-displaced Humerus Fracture RUE, as well as PT diagnosis of Right shoulder pain, Decreased AROM Right shoulder and weakness in RUE and demonstrates impairments/limitations in Right shoulder AROM and PROM, decreased MMT with gradingbased on ROM deficits this date and no manual resistance applied. Pt able to tolerated PROM well this date, but did have firm end feel in all ranges, with more restrictions into RUE ER. Pt also presented with myofascial restriction throughout RIght shoulder girdle and upper arm musculature. She reported good understanding of all edu and HEP with HO given and verbally reviewed. They would benefit from skilled Physical Therapy with combination of manual therapy techniques to decrease myofascial and joint restrictions, as well as progression of exercises for ROM, flexibility, strength, core stabilization, and postural retraining, and body mechanics education throughout POC to progress towards i ndependence with ADL s/IADL s and return to PLOF. * Clinical Presentation: Evolving with changing characteristics. * Level of Complexity: low * Problem List: activity limitations, ADLs/IADLs/self care skills, decreased functional level, fall risk, flexibility, motor function/control/tone, pain, participation restrictions, posture, range of motion/joint mobility, strength and transfers. [facility] Work Phone: History of Present illness NarrativePatient identified by name and date of . Patient was able to progress with strengthening and ROM. She demonstrated empty end feel with PROM and required cues to decrease with guarding. [facility] Work Phone: History of Present illness NarrativeTightness along the prox bicep area with STW. End range pain and tightness all planes passively. Passive fleion to 130 degrees. Reviewed technique with GH isometric PRE's.[facility] [employer] Work Phone: History of Present illness NarrativePatient identified by name and date of . Patient was able to progress with ROM and strengthening with addition of resistance with rows and ball on plinth. She requires cues to relax with PROM.[facility] [employer] Work Phone: History of Present illness NarrativeAdded resistive walkouts today for IR/ER. Patient fatigues quickly with ER > IR. Tightness along the bicep with STW. Patient was standing on her toes trying to reach with finger ladder. Cues were given to not reach as high d/t standing on her toes d/t the compensation. Will progress the HEP nextvisit.[facility] Work Phone: History of Present illness NarrativeAdded standing shoulder flex this date in front of mirror for ability to show patient GH compensation pattern to try to avoid while completing. Added to HEP as well. Progressed to ball on wall with some modifications d/t patient's wrist fused. Improved tolerance to PROM all planes this date.[facility] [employer] Work Phone: History of Present illness NarrativeProgressed to scaption this date with delt raises. Fair ROM with standing alphabet. Decreased GH elevation with ladder and active flexion.[facility] [employer] Work Phone: History of Present illness Narrative* Improved ROM this date in the clinic. Able to raise the arm higher this date in standing w/out as much GH elevation. Continues to have tightness along the bicep this date during massage. * Response to treatment: no change in pain, improved strength, improved endurance, improved motor control and improved knowledge and understanding of condition. [facility] [employer] Work Phone: History of Present illness Narrative* Improved ROM this date in the clinic. Able to raise the arm higher this date in standing w/out as much GH elevation. Continues to have tightness along the bicep this date during massage. * Response to treatment: no change in pain, improved strength, improved endurance, improved motor control and improved knowledge and understanding of condition. [facility] [employer] Work Phone: History of Present illness Narrative* Able to reach higher during finger ladder use with out as much compensation. Improved ROM in the shoulder with standing ABC's. Added SA press with good technique will progress next visit. * Response to treatment: no change in pain, improved strength, improved endurance, improved motor control and improved knowledge and understanding of condition. [facility] [employer] Work Phone: History of Present illness Narrative* Pt confirmed via and Full Name. * Pt reassessed this date by supervising PT with improvements noted in Right shoulder AROM and PROM as well as MMT in RUE compared to initial evaluation. Pt does demonstrate some myofascial restrictionthroughout Right anterior shoulder capsule and musculature, which did respond well to STM performedthis date. Pt reported good understanding of all edu and updates to HEP made this date and is appropriate to attempt independence with HEP and symptom management at this time. * Response to treatment: no change in pain, improved strength, improved endurance, improved motor control and improved knowledge and understanding of condition. [facility] [employer] Work Phone: History of Present illness Narrative* Issued stronger bands for ability to complete HEP at home for progression for today being the last visit. Answered all questions this date for HEP to make sure patient understands technique. * Response to treatment: no change in pain, improved strength, improved endurance, improved motor control and improved knowledge and understanding of condition. [facility] [employer] Work Phone: reason for visit Narrative* Initial Evaluation . Non- displaced fracture of Right Humerus. * [facility]erred by[facility]annes Cad[facility] [employer] Work Phone: reason for visit Narrative* Initial Evaluation . Non- displaced fracture of Right Humerus. * Referred by: Yohannes Cadet [facility] [place] Work Phone: reason for visit Narrative* Initial Evaluation . Non- displaced fracture of Right Humerus. * Referred by: Yohannes Cadet [facility] [place] Work Phone: Summary Purpose Family History No Family History Records FoundNo Family History Records Found Advance Directives No Advanced Directives Records FoundNo Advanced Directives Records Found Medications Administered Section Active Administered Medications - up to 3 most recent administrations Medication Order MAR Action Action Date Dose Rate Site PHENYLephrine 2.5 % 1 Drop (AK-DILATE, ZEHRA-SYNEPHRINE) 1 Drop, BOTH EYES, DIRECTED, Starting on Fri09/19/22 at 1500, Until Fri09/20/22 at 0259, Administer for dilation PROTECT FROM LIGHT Given 09/19/2022 3:00 PM EDT 1 Drop tropicamide 1 % 1 Drop (MYDRIACYL) 1 Drop, BOTH EYES, DIRECTED, Starting on Fri09/19/22 at 1500, Until Fri09/20/22 at 0259, Administer for dilation Given 09/19/2022 3:00 PM EDT 1 Drop Additional Source Comments INFORMATION SOURCE (unrecogn ized section and content) DATE CREATED AUTHOR AUTHOR'S ORGANIZ ATION 11/18/2022 [facility] Source Comments (unrecognize d section and content) In the event this informatio n is protected by the Federal Confidentiality of Alcohol and Drug Abuse Patient Records regulations: The Federal rules restrict any use of the information to criminally investigate or prosecute any alcohol or drug abuse patient.[facility] the event this information is protected by the Federal Confidentiality of Alcohol and Drug Abuse Patient Records regulations: The Federal rules restrict any use of the information to criminally investigate or prosecute any alcohol or drug abuse patient.[facility] the event this information is protected by the Federal Confidentiality of Alcohol and Drug Abuse Patient Records regulations: The Federal rules restrict any use of the information to criminally investigate or prosecute any alcohol or drug abuse patient.[facility] the event this information is protected by the Federal Confidentiality of Alcohol and Drug Abuse Patient Records regulations: The Federal rules restrict any use of the information to criminally investigate or prosecute any alcohol or drug abuse patient.[facility]In the event this information is protected by the Federal Confidentiality of Alcohol and Drug Abuse Patient Records regulations: The Federal rules restrict any use of the information to criminally investigate or prosecute any alcohol or drug abuse patient.[facility] HospitalIn the event this information is protected by the Federal Confidentiality of Alcohol and Drug Abuse Patient Records regulations: The Federal rules restrict any use of the information to criminally investigate or prosecute any alcohol or drug abuse patient.[facility]In the event this information is protected by the Federal Confidentiality of Alcohol and Drug Abuse Patient Records regulations: The Federal rules restrict any use of the information to criminally investigate or prosecute any alcohol or drug abuse patient.[facility] HospitalIn the event this information is protected by the Federal Confidentiality of Alcohol and Drug Abuse Patient Records regulations: The Federal rules restrict any use of the information to criminally investigate or prosecute any alcohol or drug abuse patient.[facility] HospitalIn the event this information is protected by the Federal Confidentiality of Alcohol and Drug Abuse Patient Records regulations: The Federal rules restrict any use of the information to criminally investigate or prosecute any alcohol or drug abuse patient.[facility] Reason for Visit (unrecogniz ed section and content) Reason Onset Date Comments Refill Request 06/13/2021 Reason Onset Date Comments Refill Request 11/12/2021 Reason Onset Date Comments Refill Request 08/05/2022 Reason Comments Cataract Evaluation Reason Comments Informed Consent IRB#[id number] [employer] Kelvin hernandez, ID:[id number] & Co-Enrollment IRB#[id number]. Reason Comments Rheumatoid Arthritis Reason Onset Date Comments Refill Request 01/09/2023 Care Teams (unrecognized sec tion and content) [employer] Relationship Specialty Start Date End Date Elmo Guzman MD PCP - General Family Practice 02/15/15 [employer] Relationship Specialty Start Date End Date Elmo Guzman MD PCP - General Family Medicine 02/15/15 [employer] Relationship Specialty Start Date End Date Elmo Guzman MD PCP - General Family Medicine 02/15/15 [employer] Relationship Specialty Start Date End Date Elmo Guzman MD PCP - General Family Medicine 02/15/15 [employer] Relationship Specialty Start Date End Date Elmo Guzman MD PCP - General Family Medicine 02/15/15 FOR RECORDS PERTAINING TO PATIENTS WHO ARE OR HAVE BEEN ENROLLED IN A CHEMICAL DEPENDENCY/SUBSTANCEABUSE PROGRAM, SOME INFORMATION MAY BE OMITTED. This clinical summary was aggregated from multiple sources. Caution should be exercised in using it in the provision of clinical care. This summary normalizes information from multiple sources, and as a consequence, information in this document may materially change the coding, format and clinical context of patient data. In addition, data may be omitted in some cases. CLINICAL DECISIONS SHOULD BE BASED ON THE PRIMARY CLINICAL RECORDS. [employer] [facility]. provides no warranty or guarantee of the accuracy or completeness of information in this document.
[2023-03-10 09:57] LABS: Absolute Lymphocyte Count 2.42 X10^3/uL (0.83-4.51); Absolute Neutrophil Count 2.1 X10^3/uL (2.0-7.7); Basophil# 0.03 X10^3/uL; Basophil% 0.6 % (0-1); Eosinophils% 3.9 % (0-5); Hematocrit 47.9 % (37-47); Hemoglobin 15.1 g/dL (12.0-15.0); Lymphocyte # 2.42 X10^3/ul (0.83-4.51); Lymphocyte % 46.9 % (19-41); Mean Corp Hgb Conc 31.5 g/dL (32-36); Mean Corpuscular Volume 92.1 fL (81-99); Mean Platelet Vol. 11.8 fl (6.2-12.0); Monocyte# 0.43 X10^3/uL; Monocyte% 8.3 % (0-10); NRBC Flagged by Analyzer 0 % (0-5); Neutrophil # 2.07 X10^3/uL (2.7-7.7); Neutrophil % 40.1 % (47-70); Platelet Count 180 K/mm3 (150-450); RBC Distribution Width CV 13.4 % (11.6-14.6); RBC Distribution Width SD 45.4 fl (35.1-43.9); White Blood Count 5.2 K/mm3 (4.4-11.0)
[2023-03-10 13:02] LABS: ALB/GLOB Ratio 1.1 RATIO (0.9-2.4); AST(SGOT) 31 U/L (15-37); Alanine Aminotransfer ALT/SGPT 32 U/L (13-56); Albumin, Serum 3.8 g/dL (3.2-5.0); Alkaline Phosphatase 69 U/L (45-117); Anion Gap 8 (5-15); BUN 17 mg/dL (7-18); BUN/Creat Ratio 19.5 RATIO (10-20); CRP < 2.90 mg/L (0.0-3.0); Calcium,Total 9.7 mg/dL (8.5-10.1); Chloride 106 mmol/L (98-107); Cholesterol 190 mg/dL (200); Creatinine, Serum 0.87 mg/dL (0.55-1.02); EST Glomerular Filtration Rate 67 mL/min (>60); Est Glom Filt Rate - Afr Amer 81 mL/min (>60); Free T3 2.4 pg/mL (2.18-3.98); Globulin 3.5 g/dL (2.2-4.2); Glucose 96 mg/dL (74-106); High Density Lipoprotein 81 mg/dL; Potassium 4.1 mmol/L (3.5-5.1); Protein, Total 7.3 g/dL (6.4-8.2); Sodium Level 140 mmol/L (136-145); Thyroid Stim Hormone (TSH) 1.56 uIU/mL (0.358-3.74); Triglycerides 46 mg/dL; Very Low Density Lipoprotein 9 mg/dL (5-40)
== END | disposition home or self-care (01) ==
LOC: MFPLAB 09:10
PROVIDERS: PCP Family Medicine; Visit Provider Family Medicine
DX: Z00.00 Encounter for general adult medical examination without abnormal findings (principal); M05.79 Rheumatoid arthritis with rheumatoid factor of multiple sites without organ or systems involvement; Z79.899 Other long term (current) drug therapy; E03.9 Hypothyroidism, unspecified
CPT/HCPCS: 36415; 80053; 80061; 84439; 84443; 84481; 85025; 86140

== ENCOUNTER 2023-04-05 13:13 | Emergency (ER) | payer MEDICARE, OTHER, SELFPAY ==
[2023-04-05 13:14] VITALS: BP 97/82; PULSE 109; RESP 16; TEMP 35.7; O2SAT 98; BMI 28.3
--- NOTE | 2023-04-05 13:31 | CT_ITS ---
HISTORY: Pain and diarrhea. TECHNIQUE: Helically acquired images were obtained of the abdomen and pelvis after the intravenous administration of 100 mL [id number]-370. A radiation dose optimization technique was used for this scan. 407 images. COMPARISON: None. FINDINGS: LOWER CHEST: Small calcified left lower lobe granuloma. BOWEL: Mild hiatal hernia. Bowel nondilated. Appendix not visualized. No focal pericolonic inflammatory change observed. PERITONEUM: No significant ascites. Scattered small mesenteric lymph nodes. LIVER: No enhancing mass. GALLBLADDER/BILIARY TREE: Gallbladder present. SPLEEN/PANCREAS/ADRENAL GLANDS: Homogeneous and nonenlarged. KIDNEYS: No hydronephrosis. 9 mm right upper pole cyst. VESSELS: No abdominal aortic aneurysm. Atherosclerosis of the abdominal aorta and its major branches. PELVIC ORGANS: 1.8 cm left ovarian cyst. Mildly prominent endometrial complex. ABDOMINAL WALL: Subcutaneous air over the right lower quadrant, which may be related to injections. BONES: Degenerative change. Mild chronic L4 compression fracture. CT/Abdomen/Pelvis W IV Cont ONLY IMPRESSION: Mild hiatal hernia. Small left ovarian cyst. Electronically Signed: Annabel Rebolledo MD at 14:57 EST ,
--- NOTE | 2023-04-05 13:32 | EX.ED.DYSGE1 ---
HPI History of Present Illness Chief Complaint: Abd Pain Informant: patient Narrative Narrative: Patient presents with waxing waning diarrhea and abdominal cramping. Patient's symptoms started 2 or so weeks ago. She decrease carbohydrates in the diet and then lactose. She still be having some intermittent diarrhea. She will have good days where her stool is formed and then go back to softer stool. Today she had multiple very moist stools. Yesterday was pretty good but then day before she also filled a couple toilet bowls which she describes as a slight shane water. Has never seen blood. She states when the cramping is there it hurts but when the cramping is not there she is really not having pain. She does not have nausea and vomiting. She has never seen blood at any time. She initially states she had no abdominal surgeries but she actually had appendectomy and tubal ligation many years ago. She had a colonoscopy in June or July that evidently was normal. No known history of diverticulitis. She is on Enbrel but is been on this chronically and there is no change in dosing. [facility] Medical History Alcohol use Arthritis Excessive bleeding High cholesterol History of GI bleed History of stress test Hypothyroid Non-smoker Post-menopausal Rheumatoid arthritis Seizures Thyroid disease Wears glasses Home Medications atorvastatin 10 mg tablet 10 mg PO DAILY 10/07/20 [History Last Taken Unknown] etanercept 50 mg/mL (1 mL) subcutaneous syringe (Enbrel) 50 mg subcut QWEEK 10/07/20 [History Last Taken Unknown] levothyroxine 75 mcg tablet (Synthroid) 75 mcg PO DAILY 10/07/20 [History Last Taken Unknown] calcium carbonate 600 mg calcium (1,500 mg) tablet (Calcium) 600 mg PO DAILY 05/27/22 [History Last Taken Unknown] cholecalciferol (vitamin D3) 50 mcg (2,000 unit) capsule 50 mcg PO DAILY 05/27/22 [History Last Taken Unknown] coenzyme Q10 75 mg capsule (Ultra CoQ10) 200 mg PO DAILY 05/27/22 [History Last Taken Unknown] magnesium citrate 100 mg tablet 400 mg PO DAILY 05/27/22 [History Last Taken Unknown] multivitamin 1 tab PO DAILY 05/27/22 [History Last Taken Unknown] omega 8-vha-ibi-fish oil 300 mg-1,000 mg capsule (Fish Oil) 1 cap PO DAILY 05/27/22 [History Last Taken Unknown] Allergy/AdvReac Type Severity Reaction Status Date / Time latex Allergy Rash Verified 04/05/23 13:13 Family History Mother Hypertension Heart disease CVA (cerebral vascular accident) Father Asthma Heart disease Surgical History History of colonoscopy Hx of appendectomy Hx of tonsillectomy Hx of tubal ligation Social History household members: spouse Smoking Status: Never smoker alcohol intake: never ROS ROS ED ROS Narrative A complete review of systems was performed and is negative except as documented in the history of present illness. Some specific details below. Constitutional: No recent fevers or chills. No overall malaise. No myalgias. EYE: No visual complaints or pain. ENT: No difficulty swallowing. No swelling. No pain. No GERD symptoms CV: No chest pain or palpitations. Respiratory: No dyspnea. No hemoptysis. No difficulty taking breaths. GI: Please see history of present illness. : No frequency dysuria or hematuria. No change in urination at all. Musculoskeletal: No recent trauma. No pains. No referral of pain to the back even when she has cramping. Skin: No rash. Nondiaphoretic. Neuro: No weakness or numbness. Endocrine: No polyuria or polydipsia. EXAM Physical Exam Narrative Exam Narrative: CONSTITUTIONAL: Patient is nontoxic in appearance. The patient looks comfortable. HEENT: No notable trauma. Mucous membranes moist. No sinus tenderness. No indication of pain with swallowing. EYES: No conjunctival injection. No proptosis. CARDIOVASCULAR: Regular rate. Regular rhythm. No notable murmur. No JVD. RESPIRATORY: No respiratory distress. Breathing is unlabored. No wheezes. No rhonchi. No rales. No pain with a deep breath. GASTROINTESTINAL: Not distended. Bowel sounds are normal. Mild right-sided tenderness more toward the lower abdomen than upper. No guarding. No rebound. No palpable mass. No bruit. GENITOURINARY: No tenderness over the bladder. No CVA tenderness. MUSCULOSKELETAL: Atraumatic. No peripheral edema. No tenderness. NEUROLOGICAL: Patient is alert and appropriate. No focal deficit noted. SKIN: No noted rashes. No diaphoresis. PSYCHIATRIC: Patient is calm. Mood is appropriate. Const Vital Signs: 04/05/23 13:14 Temperature 96.3 F L Temperature Source Temporal Pulse Rate 109 H Respiratory Rate 16 Blood Pressure 97/82 H Blood Pressure Mean 87 Pulse Ox 98 Oxygen Delivery Method Room Air MDM MDM MDM Narrative Medical decision making narrative: Patient's CBC is overall normal. Patient's electrolytes are overall unremarkable other than mild elevation of glucose which is nonspecific. Patient's liver function test show no marked abnormalities. Patient's lipase is normal. Patient's urinalysis shows no convincing evidence of infection. My independent or potation of the patient's CT of the abdomen shows no sign of acute intra-abdominal process and final reading shows multiple small changes but nothing to explain her symptoms. I think patient is safe for home. She has not been able to have a stool here to give a good sample. I will see if I can do outpatient orders for the same studies. Lab Data Attestation: I reviewed the patient's lab results. Labs: Laboratory Results - last 24 hr 04/05/23 04/05/23 13:40 14:45 WBC 7.1 RBC 4.86 Hgb 14.3 Hct 44.2 MCV 90.9 MCH 29.4 MCHC 32.4 RDW Std Deviation 44.7 H RDW Coeff of Dustin 13.3 Plt Count 136 L MPV 11.0 Immature Gran % (Auto) 0.100 Neut % (Auto) 83.5 H Lymph % (Auto) 10.2 L Wilcox % (Auto) 4.5 Eos % (Auto) 1.6 Baso % (Auto) 0.1 Absolute Neuts (auto) 5.9 Absolute Lymphs (auto) 0.72 L Nucleated RBC % 0 Sodium 138 Potassium 3.7 Chloride 106 Carbon Dioxide 28.0 Anion Gap 4 L BUN 12 Creatinine 0.91 Estim Creat Clear Calc 46.43 Est GFR (MDRD) Af Amer 77 Est GFR (MDRD) Non-Af 64 BUN/Creatinine Ratio 13.2 Glucose 122 H Calcium 9.4 Total Bilirubin 0.60 AST 39 H ALT 38 Alkaline Phosphatase 65 Total Protein 7.1 Albumin 3.7 Globulin 3.4 Albumin/Globulin Ratio 1.1 Lipase 58 Urine Color Yellow Urine Clarity Clear Urine pH 6.0 Ur Specific [place] 1.015 Urine Protein Negative Urine Glucose (UA) Normal Urine Ketones Negative Urine Occult Blood 10 H Urine Nitrite Negative Urine Bilirubin Negative Urine Urobilinogen Normal Ur Leukocyte Esterase 25 H Urine RBC 0 SEEN Urine WBC 0-5 SEEN Ur Squamous Epith Cells 0 SEEN Urine Bacteria 0 SEEN Urine Mucus 0 SEEN Radiography Diagnostic Testing: Clinical Impression(s) from Imaging Studies Abdomen/Pelvis CT 04/05/23 13:31 IMPRESSION: Mild hiatal hernia. Small left ovarian cyst. Electronically Signed: Annabel Rebolledo MD at 14:57 EST , Discharge Plan Triage Chief Complaint: Abd Pain ED Provider: Alan Page Dx/Rx/DC Orders Clinical Impression: Abdominal cramping, Diarrhea Instructions: ED Diarrhea, Unknown Cause Prescriptions: No Action calcium carbonate [Calcium 600] 600 mg calcium (1,500 mg) tablet 600 mg PO DAILY magnesium citrate 100 mg tablet 400 mg PO DAILY Ultra CoQ10 75 mg capsule 200 mg PO DAILY multivitamin Tablet 1 tab PO DAILY cholecalciferol (vitamin D3) 50 mcg (2,000 unit) capsule 50 mcg PO DAILY omega 4-boh-pzk-fish oil [Fish Oil] 300-1,000 mg capsule 1 cap PO DAILY atorvastatin 10 mg tablet 10 mg PO DAILY levothyroxine [Synthroid] 75 mcg tablet 75 mcg PO DAILY Enbrel 50 mg/mL (1 mL) syringe 50 mg SUBCUT QWEEK Other Ambulatory Orders: ENTERIC PATHOGEN PANEL STOOL (Routine) Timeframe: 1 Day Facility: [facility] - Location: Laboratory Ordered By: Dr. Alan Page Primary Care Provider: Elmo Cooney Referrals: Elmo Cooney MD [Primary Care Provider] - 3-5 Days if not improving Disposition Disposition: Home, Self Care
--- OUTSIDE RECORDS SUMMARY | 2023-04-05 13:45 | XMS RPT_ITS | CCD ---
Author Name Unknown Address [address] [place] [address] Organization [facility] Care Team Providers Care Sample Driller Name Role Phone Pending Provider Unavailable Unavailable Ivet CORTES, Elmo Jones Primary Care Provider Elmo Guzman MD Primary Care Provider Elmo Guzman MD Primary Care Provider [phone] ELMO GUZMAN Primary Care Unavailable KEMI RUFF Referring Unavailable KEMI RUFF Attending Unavailable ELMO GUZMAN Primary Care Unavailable PHILLIP PINA II [facility] ELMO GUZMAN Primary Care Unavailable Allergies Allergy Classification Reported Allergen(s) Allergy Type Date of Onset Reaction(s) Facility (10 sources) Codeine; Translations: [CODEINE] Drug Allergy 05-05-2002 [facility] (10 sources) Latex; Translations: [LATEX] Allergy to substance 05-05-2002 [facility] (10 sources) Pentazocine; Translations: [PENTAZOCINE] Drug Allergy 05-05-2002 [facility] (10 sources) Propoxyphene; Translations: [PROPOXYPHENE] Drug Allergy 05-05-2002 [facility] Medications Current Medications Medication Drug Class(es) [...] current use of immunosuppressive drug; Translations: [Other manager terminal (current) drug therapy] 11-16-2022 Episodic Other connective [...] 97.9 [degF] Kemi Ruff MD Work Phone: [facility] 11-14-2022 10:08-0400 Body weight 65.55 kg Kemi Ruff MD Work Phone: [facility] 11-14-2022 10:08-0400 Diastolic blood pressure 59 mm[Hg] Kemi Ruff MD Work Phone: [facility] 11-14-2022 10:08-0400 Heart rate 74 /min Kemi Ruff MD Work Phone: [facility] 11-14-2022 10:08-0400 Systolic blood pressure 136 mm[Hg] Kemi Ruff MD Work Phone: [facility] Encounters Encounter Date Encounter Type Care Provider Facility Start: 01-09-2023 Refill Kemi Miller Work Phone: Rheumatology Procedures Date Procedure Procedure Detail Performing Clinician Start: 09-11-2021 Adult depression screening assessment Kemi Ruff MD Work Phone: Start: 10-13-2019 Adult depression screening assessment Kemi Ruff MD Work Phone: Plan of Treatment Date Care Activity Detail Author Start: 08-09-2031 Urine microalbumin profile [facility] Start: 11-14-2022 End: 11-22-2022 CLINICAL TRIAL DRAW [facility] Fou ndation Work Phone: Immunizations Immunization Date Immunization Notes Care Provider Silvia ndiaye 12-06-2021 influenza (HD-IIV4) vaccine, age 65+ yr, high dose, quadrivalent, PF (FLUZONE HIGH-DOSE) Sharon Goottoniel Work Phone: [facility] 12-06-2021 influenza virus vacc ine, unspecified formulation Sharon Goottoniel Work Phone: [facility] 08-08-2021 tetanus toxoid, redu negro diphtheria toxoid, and acellular pertussis vaccine, adsorbed Kemi Ruff MD Work Phone: [facility] 01-12-2021 influenza, high-dose , quadrivalent vaccine (FLUZONE HIGH DOSE QUADRIVALENT) Kemi Ruff MD Work Phone: [facility] 02-25-2020 COVID-19 original vaccine, full dose, monovalent (MODERNA) Kemi Ruff MD Work Phone: [facility] 02-25-2020 influenza, seasonal, injectable Kemi Ruff MD Work Phone: [facility] 01-10-2020 zoster vaccine recombinant Kemi Ruff MD Work Phone: [facility] 12-01-2019 influenza (aIIV4) vaccine, age 65+ yr, quadrivalent, PF (FLUAD QUADRIVALENT) Kemi Ruff MD Work Phone: [facility] 11-25-2019 influenza, injectabl e, quadrivalent, contains preservative Kemi Ruff MD Work Phone: [facility] 11-08-2019 zoster vaccine recombinant Kemi Ruff MD Work Phone: [facility] 12-17-2018 influenza, high dose seasonal, preservative-free Kemi Ruff MD Work Phone: [facility] 01-28-2014 pneumococcal polysaccharide vaccine, 23 valent Kemi Ruff MD Work Phone: [facility] 02-12-2011 tetanus toxoid, redu negro diphtheria toxoid, and acellular pertussis vaccine, adsorbed Kemi Ruff MD Work Phone: [facility] 01-06-2009 novel influenza-H1N1 -09, preservative-free, injectable Kemi Ruff MD Work Phone: [facility] Payers Date Payer Category Payer Medicare [id number] 2015 Private Health Insurance HUMANA HUMANA MEDICARE SUPPLEMENT [id number] 2015-Present [phone] [address] [address] [place] [address] Indemnity [id number] 2015 Private Health Insurance HUMANA HUMANA MEDICARE SUPPLEMENT [id number] 2015-Present [phone] [address] [address] [place] [address] Indemnity [id number] 2011 Medicare MEDICARE MEDICAR E A AND B [id number] 2011-Present [phone] [address] [address] [place] [address] Medicare [id number] 2011 Medicare MEDICARE MEDICAR E A AND B [id number] 2011-Present [phone] [place] [address] Medicare [id number] 2011 Medicare [id number] Unknown Social History Date Type Detail Facility Tobacco smoking stat [facility] Never smoked tobacco [facility] Start: 10-14-2019 End: 11-14-2022 Alcohol intake Current drinker of alcohol (finding) [facility] Start: 10-14-2019 End: 11-14-2022 Alcohol intake [facility] Start: 1945 Sex Assigned At Female [facility] Start: 09-12-2021 End: 11-14-2022 Tobacco use panel [facility] Adult Depression Screening Assessment 0 [facility] Start: 10-13-2019 Gender identity Identifies as female gender (finding) [facility] Start: 09-26-2020 Sexual orientation Heterosexual (colleen steven) [facility] Clinical Notes 06-13-2021 to 01-09-2023 Telephone [...] with positive rheumatoid factor (HCC) Rheumatology Ar[facility] [place] Kemi Ruff MD 09/27/2020 Rheumatoid arthritis involving multiple sites with positive rheumatoid factor (HCC) [facility] Kemi Ruff MD Upcoming Rheumatology Appointments - Next 365 Days Visit Type Date Time Department [facility] 05/15/2023 10:40 AM [facility] A50 to-BBB message sent to patient as reminder to [...] Instance) Lab Orders None Nicolle Guerra RN [facility] pharmacy requesting refills documented in this encounter [facility] 11-14-2022 Note HNO ID: [id number] Author: Sharon Fox Service: ? Author Type: ? Type: Progress Notes Filed: 11/14/2022 12:30 PM Note Text: Clinical Research Study [facility]opaedic AND Rheumatologic [place] IRB# [id number] Title: Defining a Personalized Treatment Approach to Rheumatoid Arthritis: Using Genetic Markers of TNFi Response. PI: Dr. Kemi Ruff Optional Co-Enrollment: IRB# [id number] Title: [facility] BioRepository (CC-BioR) PI: Dr. Sabrina Hyde [...] Coordinator - Rheumatology AND Immunologic Diseases Pager: [phone] [facility] 11-14-2022 History of Present illness Narrative Clinical Research Study Orthopaedic & Rheumatologic [place] IRB# [id number] Title: Defining a Personalized Treatment Approach to Rheumatoid Arthritis: Using Genetic Markers of TNFi Response. PI: Dr. Kemi Ruff Optional Co-Enrollment: IRB# [id number] Title: [facility] BioRepository (-BioR) PI: Dr. Sabrina Hyde [...] Coordinator - Rheumatology & Immunologic Diseases Pager: [phone] documented in this encounter [facility] 11-14-2022 Note HNO ID: [id number] Author: Kemi Ruff MD Service: ? Author Type: Physician Type: Progress Notes Filed: 11/16/2022 11:17 PM Note Text: Rheumatology Clinic Date of Service: 11/14/2022 Patient: Sparkle Pina Medical Record: [id number] Primary Care Physician: Elmo Guzman MD Last [...] and Abdominal pain (more content not included)... [facility] 11-14-2022 History of Present illness Narrative Images from the original note were not included. 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 CC: PCP: Elmo Guzman MD [address] [facility] [address] [facility] [address] Phone #: [phone] I spent a total of 30 minutes on the date of the service which included preparing to see the patient, [id number] patient care, completing clinical documentation, obtaining and/or reviewing separately obtained history, performing a medically appropriate examination, counseling and educating the patient/family/caregiver, ordering medications, tests, or procedures, independently interpreting results (not separately reported), and communicating results to the patient/family/caregiver. ____ Kemi Ruff MD Rheumatology Date: November 14, 2022 Time: 10:26 AM documented in this encounter [facility] 09-19-2022 Note HNO ID: [id number] Author: Phillip Pina II, OD Service: ? Author Type: HEALTH SCIENCE SPECIALIST Type: Progress Notes Filed: 09/19/2022 2:35 PM [...] its relevant components. Phillip Pina II, OD [facility] 09-19-2022 Instructions Phillip Pina II, OD - [...] Pina II, OD documented in this encounter [facility] 09-19-2022 History of Present illness Narrative [...] Pina II, OD documented in this encounter [facility] 08-05-2022 Miscellaneous Notes Most recent Rheumatology [...] Days Visit Type Date Time Department [facility] 11/14/2022 10:20 AM RHEU [...] THE SKIN EVERY WEEK Received fax from [facility] requesting refills for enbrel documented in this encounter [facility] 11-12-2021 Miscellaneous Notes Most recent Rheumatology [...] Nicolle Guerra RN documented in this encounter [facility] 06-13-2021 Miscellaneous Notes called human, . Turn around time is 24-72 hours. They will fax determination for Enbrel PF syringes. Patient has new pharmacy insurance. I sent the Enbrel refill request. Please process the [place] BIN [id number] PCN [id number] [facility] [id number] documented in this encounter [facility] 06-13-2021 Miscellaneous Notes Please approve prescription and any additional refills and e-script to designated pharmacy. Thank you, Bailee Guerrero Ma documented in this encounter [facility] Diagnosis Examination of participant or control in clinical research- Primary Examination of participant in clinical trial [facility] Diagnosis Rheumatoid arthritis involving multiple sites with positive rheumatoid factor (HCC)- Primary manager terminal current use of immunosuppressive drug [facility] Narrative* Ms. PINA [...] range of motion/joint mobility and strength. [facility] Work Phone: History of Present illness Narrative* [...] of motion/joint mobility, strength and transfers. [facility] Work Phone: History of Present illness NarrativePatient identified by name and date of . Patient was able to progress with strengthening and ROM. She demonstrated empty end feel with PROM and required cues to decrease with guarding. [facility] Work Phone: History of Present illness NarrativeTightness along the prox bicep area with STW. End range pain and tightness all planes passively. Passive fleion to 130 degrees. Reviewed technique with GH isometric PRE's.[facility] [employer] Work Phone: History of Present illness NarrativePatient identified by name and date of . Patient was able to progress with ROM and strengthening with addition of resistance with rows and ball on plinth. She requires cues to relax with PROM.[facility] [employer] Work Phone: History of Present illness NarrativeAdded resistive walkouts today for IR/ER. Patient fatigues quickly with ER > IR. Tightness along the bicep with STW. Patient was standing on her toes trying to reach with finger ladder. Cues were given to not reach as high d/t standing on her toes d/t the compensation. Will progress the HEP nextvisit.[facility] Work Phone: History of Present illness NarrativeAdded standing shoulder flex this date in front of mirror for ability to show patient GH compensation pattern to try to avoid while completing. Added to HEP as well. Progressed to ball on wall with some modifications d/t patient's wrist fused. Improved tolerance to PROM all planes this date.[facility] [employer] Work Phone: History of Present illness NarrativeProgressed to scaption this date with delt raises. Fair ROM with standing alphabet. Decreased GH elevation with ladder and active flexion.[facility] [employer] Work Phone: History of Present illness Narrative* Improved ROM this date in the clinic. Able to raise the arm higher this date in standing w/out as much GH elevation. Continues to have tightness along the bicep this date during massage. * Response to treatment: no change in pain, improved strength, improved endurance, improved motor control and improved knowledge and understanding of condition. [facility] [employer] Work Phone: History of Present illness Narrative* Improved ROM this date in the clinic. Able to raise the arm higher this date in standing w/out as much GH elevation. Continues to have tightness along the bicep this date during massage. * Response to treatment: no change in pain, improved strength, improved endurance, improved motor control and improved knowledge and understanding of condition. [facility] [employer] Work Phone: History of Present illness Narrative* Able to reach higher during finger ladder use with out as much compensation. Improved ROM in the shoulder with standing ABC's. Added SA press with good technique will progress next visit. * Response to treatment: no change in pain, improved strength, improved endurance, improved motor control and improved knowledge and understanding of condition. [facility] [employer] Work Phone: History of Present illness Narrative* [...] improved knowledge and understanding of condition. [facility] [employer] Work Phone: History of Present illness Narrative* Issued stronger bands for ability to complete HEP at home for progression for today being the last visit. Answered all questions this date for HEP to make sure patient understands technique. * Response to treatment: no change in pain, improved strength, improved endurance, improved motor control and improved knowledge and understanding of condition. [facility] [employer] Work Phone: reason for visit Narrative* Initial Evaluation . Non- displaced fracture of Right Humerus. * Referred by: Yohannes Cadet [facility] [employer] Work Phone: reason for visit Narrative* Initial Evaluation . Non- displaced fracture of Right Humerus. * Referred by: Yohannes Cadet [facility] [place] Work Phone: reason for visit Narrative* Initial Evaluation . Non- displaced fracture of Right Humerus. * Referred by: Yohannes Cadet [facility] [place] Work Phone: Summary Purpose Family [...] DATE CREATED AUTHOR AUTHOR'S ORGANIZ ATION 11/18/2022 [facility] Source Comments (unrecognize d section and content) In the event this informatio n is protected by the Federal Confidentiality of Alcohol and Drug Abuse Patient Records regulations: The Federal rules restrict any use of the information to criminally investigate or prosecute any alcohol or drug abuse patient.[facility] the event this information is protected by the Federal Confidentiality of Alcohol and Drug Abuse Patient Records regulations: The Federal rules restrict any use of the information to criminally investigate or prosecute any alcohol or drug abuse patient.[facility] the event this information is protected by the Federal Confidentiality of Alcohol and Drug Abuse Patient Records regulations: The Federal rules restrict any use of the information to criminally investigate or prosecute any alcohol or drug abuse patient.[facility] the event this information is protected by the Federal Confidentiality of Alcohol and Drug Abuse Patient Records regulations: The Federal rules restrict any use of the information to criminally investigate or prosecute any alcohol or drug abuse patient.[facility] the event this information is protected by the Federal Confidentiality of Alcohol and Drug Abuse Patient Records regulations: The Federal rules restrict any use of the information to criminally investigate or prosecute any alcohol or drug abuse patient.[facility] the event this information is protected by the Federal Confidentiality of Alcohol and Drug Abuse Patient Records regulations: The Federal rules restrict any use of the information to criminally investigate or prosecute any alcohol or drug abuse patient.[facility] the event this information is protected by the Federal Confidentiality of Alcohol and Drug Abuse Patient Records regulations: The Federal rules restrict any use of the information to criminally investigate or prosecute any alcohol or drug abuse patient.[facility] the event this information is protected by the Federal Confidentiality of Alcohol and Drug Abuse Patient Records regulations: The Federal rules restrict any use of the information to criminally investigate or prosecute any alcohol or drug abuse patient.[facility] the event this information is protected by the Federal Confidentiality of Alcohol and Drug Abuse Patient Records regulations: The Federal rules restrict any use of the information to criminally investigate or prosecute any alcohol or drug abuse patient.[facility] Reason for Visit (unrecogniz ed section and content) Reason Onset Date Comments Refill Request 06/13/2021 Reason Onset Date Comments Refill Request 11/12/2021 Reason Onset Date Comments Refill Request 08/05/2022 Reason Comments Cataract Evaluation Reason Comments Informed Consent IRB#[id number] AF Kelvin hernandez, ID:[id number] & Co-Enrollment IRB#[id number] CC-BioR. Reason Comments Rheumatoid Arthritis Reason Onset Date Comments Refill Request 01/09/2023 Care Teams (unrecognized sec tion and content) Sample Driller Relationship Specialty Start Date End Date Elmo Guzman MD PCP - General Family Practice 02/15/15 Sample Driller Relationship Specialty Start Date End Date Elmo Guzman MD PCP - General Family Medicine 02/15/15 Sample Driller Relationship Specialty Start Date End Date Elmo Guzman MD PCP - General Family Medicine 02/15/15 Sample Driller Relationship Specialty Start Date End Date Elmo Guzman MD PCP - General Family Medicine 02/15/15 Sample Driller Relationship Specialty Start Date End Date Elmo [...] BE BASED ON THE PRIMARY CLINICAL RECORDS. [employer] [facility]. provides no warranty or guarantee of the accuracy or completeness of information in this document.
[2023-04-05] MEDS: 0.9% Normal Saline (1000mL) 1,000 ML 1000 ML IV (13:50)
[2023-04-05 13:55] LABS: Absolute Lymphocyte Count 0.72 X10^3/uL (0.83-4.51); Absolute Neutrophil Count 5.9 X10^3/uL (2.0-7.7); Basophil# 0.01 X10^3/uL; Basophil% 0.1 % (0-1); Eosinophil# 0.11 X10^3/uL; Eosinophils% 1.6 % (0-5); Hematocrit 44.2 % (37-47); Hemoglobin 14.3 g/dL (12.0-15.0); Lymphocyte # 0.72 X10^3/ul (0.83-4.51); Lymphocyte % 10.2 % (19-41); Mean Corp Hgb Conc 32.4 g/dL (32-36); Mean Corpuscular Hgb 29.4 pg (27.0-32.0); Mean Corpuscular Volume 90.9 fL (81-99); Monocyte# 0.32 X10^3/uL; Monocyte% 4.5 % (0-10); NRBC Flagged by Analyzer 0 % (0-5); Neutrophil # 5.91 X10^3/uL (2.7-7.7); Neutrophil % 83.5 % (47-70); Platelet Count 136 K/mm3 (150-450); RBC Distribution Width CV 13.3 % (11.6-14.6); RBC Distribution Width SD 44.7 fl (35.1-43.9); Red Blood Count 4.86 M/mm3 (4.2-5.4); White Blood Count 7.1 K/mm3 (4.4-11.0)
[2023-04-05 14:05] LABS: ALB/GLOB Ratio 1.1 RATIO (0.9-2.4); AST(SGOT) 39 U/L (15-37); Alanine Aminotransfer ALT/SGPT 38 U/L (13-56); Albumin, Serum 3.7 g/dL (3.2-5.0); Alkaline Phosphatase 65 U/L (45-117); Anion Gap 4 (5-15); BUN 12 mg/dL (7-18); BUN/Creat Ratio 13.2 RATIO (10-20); Calcium,Total 9.4 mg/dL (8.5-10.1); Chloride 106 mmol/L (98-107); Creatinine, Serum 0.91 mg/dL (0.55-1.02); EST Glomerular Filtration Rate 64 mL/min (>60); Est Glom Filt Rate - Afr Amer 77 mL/min (>60); Estimated Creatinine Clearance 46.43 ml/min; Globulin 3.4 g/dL (2.2-4.2); Glucose 122 mg/dL (74-106); Lipase 58 U/L (13-75); Potassium 3.7 mmol/L (3.5-5.1); Protein, Total 7.1 g/dL (6.4-8.2); Sodium Level 138 mmol/L (136-145)
[2023-04-05 14:50] LABS: Bacteria 0 SEEN /hpf (None Seen); Mucous, Urine 0 SEEN /hpf (<or=2+); Red Blood Cells-Urine 0 SEEN /hpf (0-5); Squamous Epithelial Cells - UA 0 SEEN /hpf (5-10)
[2023-04-05 14:55] LABS: Color, Urine Yellow (Yellow); Glucose, Dipstick Normal (Normal); Ketone-Dipstick Negative (Negative); Leukocyte Esterase-Dipstick 25 /ul (Negative); Nitrite-Dipstick Negative (Negative); Occult Blood-Urine 10 /ul (Negative); Protein-Dipstick Negative (Negative); Specific Gravity, Urine 1.015 (1.002-1.030); Urine Bilirubin Dipstick Negative (Negative); Urine Clarity Clear (Clear); Urine Urobilinogen Normal (Normal)
[2023-04-05 15:33] LABS: White Blood Cells 0-5 SEEN /hpf (0-5)
== END 2023-04-05 16:23 | disposition home or self-care (01) ==
PROVIDERS: Emergency Provider Emergency Medicine; PCP Family Medicine; Visit Provider Emergency Medicine
DX: R10.9 Unspecified abdominal pain (principal); R19.7 Diarrhea, unspecified; Z90.49 Acquired absence of other specified parts of digestive tract; E78.00 Pure hypercholesterolemia, unspecified
CPT/HCPCS: 74177; 80053; 81001; 83690; 85025; 96360; 96361; 99283; J7030; Q9967; A4216

== ENCOUNTER → 2023-04-08 | Outpatient (CLI) | payer MEDICARE, OTHER, SELFPAY | END | disposition home or self-care (01) | PROVIDERS: PCP Family Medicine; Referring Provider Emergency Medicine; Visit Provider Emergency Medicine | DX: R19.7 Diarrhea, unspecified (principal) ==

== ENCOUNTER 2023-08-05 13:19 | Outpatient (CLI) | payer MEDICARE, OTHER, SELFPAY ==
[2023-08-05 16:00] LABS: Absolute Lymphocyte Count 2.85 X10^3/uL (0.83-4.51); Absolute Neutrophil Count 3.4 X10^3/uL (2.0-7.7); Basophil# 0.05 X10^3/uL; Basophil% 0.6 % (0-1); Eosinophil# 1.32 X10^3/uL; Eosinophils% 15.8 % (0-5); Hematocrit 43.1 % (37-47); Hemoglobin 13.7 g/dL (12.0-15.0); Lymphocyte # 2.85 X10^3/ul (0.83-4.51); Lymphocyte % 34.2 % (19-41); Mean Corp Hgb Conc 31.8 g/dL (32-36); Mean Corpuscular Hgb 28.7 pg (27.0-32.0); Mean Corpuscular Volume 90.2 fL (81-99); Mean Platelet Vol. 12.5 fl (6.2-12.0); Monocyte# 0.69 X10^3/uL; Monocyte% 8.3 % (0-10); NRBC Flagged by Analyzer 0 % (0-5); Neutrophil # 3.41 X10^3/uL (2.7-7.7); Neutrophil % 40.9 % (47-70); Platelet Count 208 K/mm3 (150-450); RBC Distribution Width CV 13.2 % (11.6-14.6); RBC Distribution Width SD 43.1 fl (35.1-43.9); Red Blood Count 4.78 M/mm3 (4.2-5.4); White Blood Count 8.3 K/mm3 (4.4-11.0)
[2023-08-05 16:16] LABS: ALB/GLOB Ratio 1.1 RATIO (0.9-2.4); AST(SGOT) 23 U/L (15-37); Alanine Aminotransfer ALT/SGPT 23 U/L (13-56); Albumin, Serum 3.6 g/dL (3.2-5.0); Alkaline Phosphatase 86 U/L (45-117); Anion Gap 6 (5-15); BUN 15 mg/dL (7-18); BUN/Creat Ratio 17.5 RATIO (10-20); CRP 6.02 mg/L (0.0-3.0); Calcium,Total 9.3 mg/dL (8.5-10.1); Chloride 105 mmol/L (98-107); Creatinine, Serum 0.86 mg/dL (0.55-1.02); EST Glomerular Filtration Rate 68 mL/min (>60); Est Glom Filt Rate - Afr Amer 83 mL/min (>60); Globulin 3.3 g/dL (2.2-4.2); Glucose 116 mg/dL (74-106); Protein, Total 6.9 g/dL (6.4-8.2); Sodium Level 139 mmol/L (136-145)
[2023-08-05 16:52] LABS: Erythrocyte Sedimentation Rate 13 mm/hr (0-30)
== END 2023-08-05 23:59 | disposition home or self-care (01) ==
PROVIDERS: PCP Family Medicine
DX: M05.79 Rheumatoid arthritis with rheumatoid factor of multiple sites without organ or systems involvement (principal); Z79.899 Other long term (current) drug therapy
CPT/HCPCS: 36415; 80053; 85025; 85652; 86140

== ENCOUNTER → 2023-09-08 | Outpatient (CLI) | payer MEDICARE, OTHER, SELFPAY ==
[2023-09-08 11:30] LABS: CRP < 2.90 mg/L (0.0-3.0); Cholesterol 152 mg/dL (200); Free T3 2.2 pg/mL (2.18-3.98); High Density Lipoprotein 65 mg/dL; T4 Free Direct 0.95 ng/dL (0.76-1.46); Thyroid Stim Hormone (TSH) 4.77 uIU/mL (0.358-3.74); Triglycerides 73 mg/dL; Very Low Density Lipoprotein 15 mg/dL (5-40)
== END | disposition home or self-care (01) ==
LOC: MFPLAB 08:56
PROVIDERS: PCP Family Medicine; Visit Provider Family Medicine
DX: M06.9 Rheumatoid arthritis, unspecified (principal); E78.5 Hyperlipidemia, unspecified; E03.9 Hypothyroidism, unspecified
CPT/HCPCS: 36415; 80061; 84439; 84443; 84481; 86140

== ENCOUNTER → 2024-03-08 | Outpatient (CLI) | payer MEDICARE, OTHER, SELFPAY ==
[2024-03-08 10:29] LABS: Erythrocyte Sedimentation Rate 15 mm/hr (0-30)
[2024-03-08 10:30] LABS: Absolute Lymphocyte Count 2.52 X10^3/uL (0.83-4.51); Absolute Neutrophil Count 3.5 X10^3/uL (2.0-7.7); Basophil# 0.03 X10^3/uL; Basophil% 0.4 % (0-1); Eosinophil# 0.33 X10^3/uL; Eosinophils% 4.7 % (0-5); Hematocrit 41.7 % (37-47); Hemoglobin 13.5 g/dL (12.0-15.0); Lymphocyte # 2.52 X10^3/ul (0.83-4.51); Lymphocyte % 36.2 % (19-41); Mean Corp Hgb Conc 32.4 g/dL (32-36); Mean Corpuscular Hgb 28.5 pg (27.0-32.0); Mean Corpuscular Volume 88.2 fL (81-99); Mean Platelet Vol. 11.2 fl (6.2-12.0); Monocyte# 0.54 X10^3/uL; Monocyte% 7.7 % (0-10); NRBC Flagged by Analyzer 0 % (0-5); Neutrophil # 3.54 X10^3/uL (2.7-7.7); Neutrophil % 50.9 % (47-70); Platelet Count 231 K/mm3 (150-450); RBC Distribution Width CV 13.9 % (11.6-14.6); RBC Distribution Width SD 45.1 fl (35.1-43.9); Red Blood Count 4.73 M/mm3 (4.2-5.4)
[2024-03-08 10:57] LABS: ALB/GLOB Ratio 1.1 RATIO (0.9-2.4); AST(SGOT) 30 U/L (15-37); Alanine Aminotransfer ALT/SGPT 25 U/L (13-56); Albumin, Serum 3.6 g/dL (3.2-5.0); Alkaline Phosphatase 72 U/L (45-117); Anion Gap 7 (5-15); BUN 19 mg/dL (7-18); BUN/Creat Ratio 26.2 RATIO (10-20); CRP 4.09 mg/L (0.0-3.0); Calcium,Total 9.3 mg/dL (8.5-10.1); Chloride 105 mmol/L (98-107); Creatinine, Serum 0.72 mg/dL (0.55-1.02); EST Glomerular Filtration Rate 83 mL/min (>60); Est Glom Filt Rate - Afr Amer 100 mL/min (>60); Free T3 2.2 pg/mL (2.18-3.98); Globulin 3.4 g/dL (2.2-4.2); Glucose 92 mg/dL (74-106); Potassium 3.9 mmol/L (3.5-5.1); Sodium Level 139 mmol/L (136-145); T4 Free Direct 1.31 ng/dL (0.76-1.46)
== END | disposition home or self-care (01) ==
LOC: MFPLAB 08:41
PROVIDERS: PCP Family Medicine; Referring Provider Family Medicine; Visit Provider Family Medicine
DX: E03.9 Hypothyroidism, unspecified (principal); M05.79 Rheumatoid arthritis with rheumatoid factor of multiple sites without organ or systems involvement; M35.00 Sjogren syndrome, unspecified; Z79.899 Other long term (current) drug therapy; S46.011A Strain of muscle(s) and tendon(s) of the rotator cuff of right shoulder, initial encounter; X58.XXXA Exposure to other specified factors, initial encounter

== ENCOUNTER → 2024-03-24 | Outpatient (CLI) | payer MEDICARE, OTHER, SELFPAY ==
--- NOTE | 2024-03-24 13:58 | SP.MBSS_ITS ---
Modified Barium Swallow Patient Information Study Date: 03/24/24 Study Time: 13:05 Direct Billable Minutes: 79 Total Minutes procedure & reportin Diagnosis: Dysphagia R13.10 Referring Physician: Elmo Cooney Reason for Referral: Objectively assess swallow function, assess risk for aspiration, and determine recommendations for least restrictive diet textures and compensatory strategies to improve safety of swallow. Medical History: PMH: Alcohol use, Excessive bleeding, High cholesterol, Hx of GI bleed, Hypothyr oid, Non-smoker, RA, Seizures, GERD symptoms currently prescribed omeprazole, Small hiatal hernia. The patient was referred for MBSS by PCP due to dysphagia characterized by sensation of food/drink getting caught (pointing to the level of the sternum) w/ associated sharp, then radiating pain (4/10). This occurs ~1X/week mostly w/ foods, such as meats and breads. Sometimes liquids and saliva feel caught, as well. Food is sometimes able to be cleared w/ liquid washes. She occ has coughing spells w/ her swallowing difficulty. Current Diet Ordered: Soft textures / Thin liquids Dentition: Natural Teeth Mental Status: WNL Respiratory Status: Oxygenating on Room Air Penetration-Aspiration Scale Penetration-Aspiration Scale: OBJECTIVE ASSESSMENT OF SWALLOW FUNCTION (QUANTITATIVE ? PER TRIAL): PENETRATION / ASPIRATION SCALE (ROBBINS): 1 = does not enter airway 2 = enters airway/above vocal folds/ejected 3 = enters airway/above vocal folds/not ejected 4 = enters airway/contacts vocal folds/ejected 5 = enters airway/contacts vocal folds/not ejected 6 = enters airway/below vocal folds/ejected 7 = enters airway/below vocal folds/not ejected despite effort 8 = enters airway/below vocal folds/no effort VIDEOFLOROSCOPIC SCALE SCORE (ROBBINS): Grade I = aspiration of material that has penetrated into the laryngeal vestibule, intact cough reflex Grade II = aspiration < 10 % of the bolus, intact cough reflex Grade III = aspiration of < 10 % of the bolus, reduced cough reflex or aspiration of > 10 % of the bolus, intact cough reflex Grade IV = aspiration of > 10 % of the bolus, reduced cough reflex Penetration-Aspiration Scale Score Thin Liquid via teaspoon: Result: 1= does not enter airway Thin Liquid via teaspoon Trial 2: Result: 1= does not enter airway Thin Liquid via small single sip: cup: Result: 1= does not enter airway Thin Liquid via sequential sips: cup: Result: 1= does not enter airway Comment: Esophageal screen - Retention in the lower esophagus w/ retrograde flow to the middle esophagus. Pudding via teaspoon: Result: 1= does not enter airway Comment: Esophageal screen - Retention throughout the esophagus. Thin Liquid via single sip: straw: Result: 1= does not enter airway Comment: Esophageal screen - Liquid wash X2 was somewhat effective, but pt had continued retention throughout lower and middle esophagus. Trace retention in upper esophagus. 1/4 Cookie: Result: 1= does not enter airway Comment: Esophageal screen - Retention in middle and lower esophagus. Thin Liquid via single sip: straw Trial 2: Result: 1= does not enter airway Comment: Esophageal screen - Liquid wash was somewhat effective, but pt had continued retention in lower and middle esophagus. Oral Phase Labial Seal: No Labial Escape Tongue Control During Bolus Hold: Posterior escape of less than half of bolus Bolus Preparation/Mastication: Timely and efficient chewing and mashing Bolus Transport/Lingual Motion: Delayed initiation of tongue motion Oral Residue: Trace residue lining oral structures Pharyngeal Phase Initiation of Pharyngeal Swallow: Bolus head in pyriforms Soft Palate Elevation: Trace column of contrast/air between soft palate and pharyngeal wall Laryngeal Elevation: Comp. Superior move thyroid cart w/comp. apprx arytenoid cart-epig pet Anterior Hyoid Excursion: Partial anterior movement Epiglottic Movement: Complete inversion Laryngeal Vestibule Closure at Height of Swallow: Complete; no air/contrast in laryngeal vestibule Pharyngeal Stripping Wave: Present - complete Pharyngoesophageal Segment Opening: Parital distension and partial duration; parital obstruction of flow (trace retention in UES) Tongue Base Retraction: Trace column of contrast between tongue base & post. pharyngeal wall Pharyngeal Residue: Trace residue within or on pharyngeal structures Esophageal Phase Esophageal Clearance: Esophageal retention w/ retrograde flow below pharyngoesophageal seg. Diagnosis/Impression Diagnosis: Esophageal dysphagia R13.14 Impression: Oropharyngeal swallow function grossly WNL. No laryngeal penetration or aspiration. Trace oral and pharyngeal residues. The esophageal phase is primarily marked by... -Retention of liquids in the lower esophagus w/ retrograde flow to the middle esophagus. -Retention of pudding throughout esophagus, which somewhat cleared w/ liquid wash. -Retention of cookie in middle and lower esophagus, which somewhat cleared w/ liquid wash. Recommendations Diet: Regular Textures (Moisten dry textures) and Thin Liquids Comment: STOP meal if increased s/s of reflux or sensation of retention despite use of strategies listed below and resume meal at a later time. Compensatory Strategies: Small Bites, Small Sips, Slow Rate, Alternate bites/solids and sips/liquids (1:1 ratio), Sitting upright and Remain sitting upright for 30 minutes after PO intake Recommend Repeat Modified Barium Swallow: No Need for Skilled Speech Therapy Services: No Recommended Referrals: GI Consult Education Completed: 1. Described result of evaluation. and 2. Pt understands evaluation & agrees with goals and treatment plan. Status Active ST Patient: Active Contact Information [facility] Speech Therapy:: Mitali Parekh M.A. CCC-DIGITAL [employer] TECHNICIAN? Speech-Language Pathologist?? [facility] [address] [place] [address]? [email or web address]?? [phone]
== END | disposition home or self-care (01) ==
LOC: RAD 12:36
PROVIDERS: PCP Family Medicine; Referring Provider Family Medicine; Visit Provider Family Medicine
DX: M06.9 Rheumatoid arthritis, unspecified (principal); R13.10 Dysphagia, unspecified
CPT/HCPCS: 74230; 92611

== ENCOUNTER → 2024-06-09 | Outpatient (CLI) | payer MEDICARE, OTHER, SELFPAY ==
--- NOTE | 2024-06-09 15:26 | RAD_ITS ---
PROCEDURE: KNEE 4 OR MORE VIEWS 06/09/2024 REASON FOR EXAM: PAIN TECHNIQUE: 4 views of the left knee COMPARISON: None FINDINGS: Bones: No fracture. No suspicious bone lesion. Joints: Moderate narrowing of the patellofemoral joint Effusion: Small joint effusion. Soft tissues: Soft tissues are unremarkable. Other: RAD/Knee 4 or More Views IMPRESSION: Moderate narrowing of the patellofemoral joint. Small suprapatellar joint effusion. No acute fracture. Reading Location: [facility]
--- NOTE | 2024-06-09 15:27 | RAD_ITS ---
PROCEDURE: KNEE 4 OR MORE VIEWS 06/09/2024 REASON FOR EXAM: PAIN TECHNIQUE: 4 views of the right knee COMPARISON: None FINDINGS: Bones: No fracture. No suspicious bone lesion. Joints: Mild narrowing of the patellofemoral joint. Effusion: Small suprapatellar joint effusion. Soft tissues: Soft tissues are unremarkable. Other: RAD/Knee 4 or More Views IMPRESSION: Mild narrowing of the patellofemoral joint. Small suprapatellar joint effusion . Reading Location: [facility]
[2024-06-09 18:18] LABS: Erythrocyte Sedimentation Rate 27 mm/hr (0-30)
[2024-06-09 18:23] LABS: Absolute Lymphocyte Count 2.85 X10^3/uL (0.83-4.51); Absolute Neutrophil Count 3.7 X10^3/uL (2.0-7.7); Basophil# 0.03 X10^3/uL; Basophil% 0.4 % (0-1); Eosinophil# 0.31 X10^3/uL; Eosinophils% 4.2 % (0-5); Hematocrit 38.5 % (37-47); Hemoglobin 12.6 g/dL (12.0-15.0); Lymphocyte # 2.85 X10^3/ul (0.83-4.51); Lymphocyte % 38.5 % (19-41); Mean Corp Hgb Conc 32.7 g/dL (32-36); Mean Corpuscular Hgb 28.6 pg (27.0-32.0); Mean Corpuscular Volume 87.5 fL (81-99); Mean Platelet Vol. 10.5 fl (6.2-12.0); Monocyte# 0.47 X10^3/uL; Monocyte% 6.4 % (0-10); NRBC Flagged by Analyzer 0 % (0-5); Neutrophil # 3.72 X10^3/uL (2.7-7.7); Neutrophil % 50.2 % (47-70); Platelet Count 333 K/mm3 (150-450); RBC Distribution Width CV 15.4 % (11.6-14.6); White Blood Count 7.4 K/mm3 (4.4-11.0)
[2024-06-09 18:24] LABS: BUN 16 mg/dL (4-19); BUN/Creat Ratio 22.5 RATIO (10-20); Creatinine, Serum 0.69 mg/dL (0.70-1.20); EST Glomerular Filtration Rate 89 (>60); Glucose 98 mg/dL (70-99)
[2024-06-09 18:25] LABS: ALB/GLOB Ratio 1.3 RATIO (0.9-2.4); AST(SGOT) 29 U/L (<=31); Alanine Aminotransfer ALT/SGPT 17 U/L (<=34); Alkaline Phosphatase 82 U/L (35-104); Anion Gap 13 (5-15); Calcium,Total 9.6 mg/dL (7.6-11.0); Carbon Dioxide 24.4 mmol/L (21.0-32.0); Chloride 100 mmol/L (98-108); Potassium 4.2 mmol/L (3.3-5.1); Sodium Level 137 mmol/L (133-145); Total Bilirubin 0.22 mg/dL (0.00-1.30)
== END | disposition home or self-care (01) ==
PROVIDERS: PCP Family Medicine; Referring Provider Family Medicine; Visit Provider Family Medicine
DX: M05.79 Rheumatoid arthritis with rheumatoid factor of multiple sites without organ or systems involvement (principal); M35.00 Sjogren syndrome, unspecified; S46.011A Strain of muscle(s) and tendon(s) of the rotator cuff of right shoulder, initial encounter; Z79.899 Other long term (current) drug therapy; X58.XXXA Exposure to other specified factors, initial encounter
CPT/HCPCS: 36415; 73564; 80053; 85025; 85652; 86140

== ENCOUNTER → 2024-09-06 | Outpatient (CLI) | payer MEDICARE, OTHER, SELFPAY ==
[2024-09-06 10:58] LABS: CRP < 3.00 mg/L (0.0-3.0); Cholesterol 164 mg/dL (<=200); Free T3 2.4 pg/mL (2.18-3.98); Low Density Lipoprotein Calc. 81 mg/dL; Triglycerides 59 mg/dL; Very Low Density Lipoprotein 12 mg/dL (5-40); cholesterol:hdl ratio screen 2.30
== END | disposition home or self-care (01) ==
LOC: MTLAB 08:45
PROVIDERS: PCP Family Medicine; Referring Provider Family Medicine; Visit Provider Family Medicine
DX: E03.9 Hypothyroidism, unspecified (principal); E78.5 Hyperlipidemia, unspecified
CPT/HCPCS: 80061; 84439; 84443; 84481; 86140